=== PATIENT | male | born 1950 | race Caucasian/White ===

== ENCOUNTER 2019-11-01 12:12 | Outpatient (CLI) | payer MEDICARE, BC, SELFPAY ==
[2019-11-01 12:47] LABS: Basophils # 0.1 10^3/uL (0.0-0.1); Basophils % 1.1 %; Eosinophils # 0.1 10^3/uL (0.0-0.8); Eosinophils % 1.2 %; Hematocrit 44.2 % (42.0-52.0); Hemoglobin 15.7 g/dL (11.7-16.6); Lymphocytes % 25.2 %; Mean Corpuscular HGB Conc 35.5 g/dL (30.0-36.0); Mean Corpuscular Hemoglobin 43.3 pg (28.0-34.0); Mean Corpuscular Volume 121.8 fL (80-94); Mean Platelet Volume 9.8 fL (7.4-10.4); Monocytes # 0.6 10^3/uL (0.2-0.9); Monocytes % 7.6 %; Neutrophils # 5.1 10^3/uL (1.8-7.7); Neutrophils % 63.4 %; Nucleated Red Blood Cells % 0.4 %; Platelet Count 348 10^3/cmm (130-400); Red Blood Count 3.63 10^6/uL (4.1-5.3); Red Cell Distribution Width 13.2 % (12.1-15.1)
--- NOTE | 2019-11-04 06:18 | ONC FU_ITS ---
Dr. Del Cid Patient Follow-Up Note Patient: Jay Dash Unit #: [id number]: 1950 Dicatated By: Mikhail Del Cid M.D.Date of Visit:Nov 01, 2019 Onc Med Follow-up/Prog Note Chief Complaint: Polycythemia rubra vera. 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 This patient has been in good general health. Sometime around 2010 his family physician told him that his blood count was high and that he should start donating blood. In 2010 he underwent appendectomy and his postoperative course was complicated by either thrombosis or hemorrhage or both. At that time he was confirmed to have polycythemia rubra vera. His indicates that he did have a positive JAK2 gene mutation study. He was initially managed with phlebotomy. He put off starting hydroxyurea until about a year and a half ago. It controlled his disease pretty well, but he still required phlebotomy about every 2-3 months. He had no further problems with thromboembolism or hemorrhage. I had seen him initially on 01/22/2018 after he had moved to this area from [place]. At that point he was taking 500 mg of hydroxyurea in the morning and 1000 mg in the evening, and he also was on aspirin prophylaxis. His hematocrit was slightly elevated at 47%. His other blood counts were normal. He was phlebotomized and he continued hydroxyurea at the same dosage. He has additional history of benign prostatic hypertrophy, which he has managed adequately with finasteride. He has no other ongoing medical illnesses. He underwent a left rotator cuff repair on 12/28/2018. He is a nonsmoker. He is seen for a scheduled visit. He has been feeling good generally. He has good energy and activity tolerance. Appetite is good. His weight is down 8 pounds since his last visit. He does not have fever or night sweats. He has no shortness of breath, cough, or chest pain. He has no GI or complaints. He still has some pain in his left shoulder following his rotator cuff surgery. He has no other joint or bone pain. He has no focal neurologic symptoms. Medications: Aspirin 1 Tablet (of 81 mg) Oral daily, Finasteride 1 Tablet (of 5 mg) Oral daily, Garlic 2 Capsule (of 200 mg) Tablet Oral daily, Hydrea (500 mg) Capsule Oral Take as Directed, Multivitamin Adults 1 Tablet Oral daily, shark oil 1 Tablet daily Allergies: Acetaminophen, hydrocodone, and Meperidine HCl. Review of Systems: Constitutional - His energy is good. He has normal activity. His appetite is good. His weight is down about 8 pounds since his last visit. No fever or night sweats. ECOG score is 0, ENMT - No sinus congestion/drainage. No mouth sores. No sore throat or difficulty swallowing, Hematologic/Lymphatic - No abnormal bruising or bleeding, Respiratory - No shortness of breath. No cough. No pleuritic pain or hemoptysis, Cardiovascular - No angina pain. No palpitations, Gastrointestinal - No nausea or vomiting. No heartburn or acid reflux. No diarrhea or constipation. No blood in the stool or black stools, Genitourinary (M) - No dysuria or hematuria. No urinary frequency. No urgency or incontinence, Musculoskeletal - He has some pain in his left shoulder, Integumentary - No skin complications, Neurologic - No headache or dizziness. No numbness/paresthesias or other focal neurologic symptoms, Psychiatric - No anxiety or depression. He sometimes has trouble sleeping at night. Vital Signs: Performed on Nov 01, 2019 13:55 Height - 70.50 in Weight - 181.8 lbs (LOW) BSA - 2.01 sq.m BMI - 25.72 Temperature - 97.4 F (LOW) Pulse - 88 /min Respiration - 19 /min BP - 140/88 mm(hg) O2 Sat - 96 % Pain - 0 Physical Examination: Constitutional - He looks good generally, Eyes - Sclerae nonicteric. Conjunctivae clear, ENMT - No lesions noted in the oral cavity, Hematologic/Lymphatic - No cervical, clavicular, or axillary adenopathy, Respiratory - Lungs are clear with good air movement bilaterally, Cardiovascular - Heart rhythm is regular. There is no murmur, gallop, or rub noted, Abdomen - Soft. Liver and spleen are not enlarged. There is no abdominal mass or ascites noted and there is no inguinal adenopathy, Extremities - No edema. Pedal pulses are palpable bilaterally, Neurologic - No focal neurologic deficits noted. Lab/Imaging: Test performed on Nov 01, 2019 12:24 WBC 8.0 10 3/uL RBC 3.63 10 6/uL HGB 15.7 g/dL HCT 44.2 % MCV 121.8 fL MCH 43.3 pg MCHC 35.5 g/dL RDW 13.2 % Platelet Count 348 10 3/cmm MPV 9.8 fL Neutrophils 5.1 10 3/uL Lymphocytes 2.0 10 3/uL Monocytes 0.6 10 3/uL Eosinophils 0.1 10 3/uL Basophils 0.1 10 3/uL Neutrophil % 63.4 % Lymphocyte % 25.2 % Monocyte % 7.6 % Eosinophil % 1.2 % Basophils % 1.1 % Impression: 1. Patient with polycythemia rubra vera, initially diagnosed in 2012. His disease has been managed adequately with hydroxyurea and aspirin prophylaxis. 2. He has benign prostatic hypertrophy, adequately managed with finasteride. 3. He has a significant family history for prostate cancer. He was seen here initially December 2017. His hematocrit was slightly elevated, but his other blood counts were normal. He continued hydroxyurea at the same dosage, which he had been tolerating well. He has since then continued to tolerate the hydroxyurea without adverse effects, and his blood counts remain adequately controlled. Overall, he appears to be doing very well clinically. Plan: He continues hydroxyurea 500 mg in the morning and 1000 mg in the evening and he continues aspirin prophylaxis. His blood count will be rechecked in 3 months. He will be phlebotomized again as needed. I will see him again in 6 months. Signed By: Mikhail Del Cdi M.D. <<Signature on File>>
== END 2019-11-01 12:13 | disposition home or self-care (01) ==
LOC: ONCMED 12:16
PROVIDERS: Family Provider Electrodiagnostic Medicine; PCP Electrodiagnostic Medicine; Visit Provider Internal Medicine Medical Oncology
DX: D45 Polycythemia vera (principal); N40.0 Benign prostatic hyperplasia without lower urinary tract symptoms; Z79.82 Long term (current) use of aspirin; Z79.899 Other long term (current) drug therapy; Z80.42 Family history of malignant neoplasm of prostate
CPT/HCPCS: 36415; 85025; 99214

== ENCOUNTER 2020-01-30 15:13 | Emergency (ER) | payer BC, SELFPAY ==
[2020-01-30 15:18] VITALS: BP 124/80; PULSE 67; RESP 18; TEMP 36.3; O2SAT 96; BMI 26.0
--- NOTE | 2020-01-30 15:31 | XRR_ITS ---
PROCEDURE INFORMATION: Exam: XR Right Ribs with PA Chest, 3 Views Exam date and time: 01/30/2020 3:32 PM Age: 69 years old Clinical indication: Injury or trauma; Fall; Initial encounter; Rib area; Blunt trauma (contusions or hematomas); Additional info: Fall from horse TECHNIQUE: Imaging protocol: XR Right ribs 3 views with PA chest. COMPARISON: No relevant prior studies available. FINDINGS: Lungs: Unremarkable. No consolidation. Pleural space: Unremarkable. No pleural effusion. No pneumothorax. Heart/Mediastinum: Unremarkable. No cardiomegaly. Bones/joints: There is a mildly displaced fracture through the lateral aspect of the right 10th rib. XR/XR ribs RT mn 3V w CXR1V [id number] IMPRESSION: There is a mildly displaced fracture through the lateral aspect of the right 10th rib.
--- NOTE | 2020-01-30 15:31 | XRR_ITS ---
PROCEDURE INFORMATION: Exam: XR Right Shoulder Exam date and time: 01/30/2020 4:16 PM Age: 69 years old Clinical indication: Injury or trauma; Fall; Initial encounter; Blunt trauma (contusions or hematomas; Shoulder; Right; Additional info: Fall from horse TECHNIQUE: Imaging protocol: XR Right shoulder. Views: 2 or more views. COMPARISON: No relevant prior studies available. FINDINGS: Bones/joints: There are [id number] degenerative changes across the acromioclavicular joint. Soft tissues: There are benign-appearing soft tissue calcifications. XR/XR shoulder RT min 2V* [id number] IMPRESSION: No acute findings.
--- NOTE | 2020-01-30 15:31 | XRR_ITS ---
PROCEDURE INFORMATION: Exam: XR Right Humerus Exam date and time: 01/30/2020 4:18 PM Age: 69 years old Clinical indication: Injury or trauma; Fall; Initial encounter; Blunt trauma (contusions or hematomas; Shoulder; Right; Additional info: Fall from horse TECHNIQUE: Imaging protocol: XR Right humerus Views: 2 or more views. COMPARISON: No relevant prior studies available. FINDINGS: Bones/joints: Normal. Soft tissues: Normal. XR/[place] [id number] IMPRESSION: No acute findings.
--- NOTE | 2020-01-30 15:32 | ED_ITS ---
HPI - Fall General: Chief Complaint: Fall Stated Complaint: BUCKED OFF A HORSE Time Seen by Provider: 01/30/20 15:25 History of Present Illness: HPI Narrative: Patient was thrown from a horse while attempting to saddle break it. Patient landed on his right side. Patient complains of pain to his right shoulder, right upper arm, and right ribs. Patient also has an abrasion to the right side of his face his right hand and left ankle. MD complaint: fall Onset (ago): hour(s) Fall from: other Fall witnessed: yes, by family Place fall occurred: home Loss of consciousness: None Prolonged down time: no Symptoms prior to fall: none Context: other Location of injury: face and chest Location of injury - extremities: Right: shoulder and arm Severity: moderate Associated symptoms-after fall: Reports no associated symptoms Review of Systems General: Reports: 10 or more systems reviewed and unremarkable except in HPI and below PFSH ED PFSH: Social History Smoking and tobacco status: never smoked Physical Exam HENMT: COMMON NORMALS: normocephalic HEAD & SCALP: normocephalic and abrasion Neck/C-Spine: COMMON NORMALS: full ROM and no meningeal signs CERVICAL S PINE: Yes cervical ROM normal, Yes normal cervical lordosis, No pain with cervical ROM and No Cervical spine tenderness Chest: CHEST: Yes localized rib tenderness with anteroposterior compression Resp: COMMON NORMALS: normal respiratory effort, No use of accessory muscles and clear to auscultation bilaterally AUSCULTATION: clear to auscultation bilaterally Cardio: COMMON NORMALS: regular rate and regular rhythm RATE: regular rate RHYTHM: regular rhythm GI: COMMON NORMALS: Normal to inspection, nondistended, normoactive bowel sounds present Extremity: RIGHT UPPER EXTREMITY: Yes shoulder joint (Tender to palpation) and Yes upper arm (Tender to palpation) Neuro: MENINGEAL SIGNS: Yes no meningeal signs Skin: COMMON NORMALS: no rashes or lesions noted GENERAL SKIN EXAM: no rashes or lesions noted TRAUMA: abrasion, no lacerations and no punctures noted Course Vital Signs: Vital signs: Vital Signs Temperature 97.3 F L 01/30/20 15:18 Pulse Rate 67 01/30/20 15:18 Respiratory Rate 18 01/30/20 15:18 Blood Pressure 124/80 01/30/20 15:18 Pulse Oximetry 96 01/30/20 15:18 MDM - Fall Imaging Data^: Other Xray: My impression: Moderately displaced fracture of the distal 10th rib. There is also a nondisplaced fracture of the ninth rib. Discharge Plan Discharge Patient Disposition: Home, Self-Care Clinical Impression: Animal-rider injured by fall from or being thrown from horse in noncollision accident, initial encounter Fracture of ribs, two, closed Qualifiers: Encounter type: initial encounter Laterality: right Qualified Code(s): S22.41XA - Multiple fractures of ribs, right side, initial encounter for closed fracture Contusion of right shoulder Qualifiers: Encounter type: initial encounter Qualified Code(s): S40.011A - Contusion of right shoulder, initial encounter Sprain of right shoulder Qualifiers: Encounter type: initial encounter Shoulder sprain type: unspecified sprain Qualified Code(s): S43.401A - Unspecified sprain of right shoulder joint, initial encounter Condition: Stable Prescriptions: New hydrocodone-acetaminophen 5-325 mg tablet 1 tab PO Q4H PRN (Reason: pain) Qty: 20 RF: 0 No Action Multiple Vitamins Tablet 1 tab PO DAILY RF: 0 garlic 300 mg Capsule 300 mg PO DAILY RF: 0 hydroxyurea 500 mg capsule 500 mg PO TID RF: 0 aspirin 81 mg Tablet,Delayed Release (Dr/Ec) 81 mg PO DAILY RF: 0 shark cartilage 500 mg Capsule 500 mg PO DAILY RF: 0 finasteride 5 mg tablet 5 mg PO TID RF: 0 Discharge Orders: Discharge Order (Routine); Ordered 01/30/20 Ordered By: [place] Bui Referrals: Mode Rivas DO [Primary Care Provider] - Patient Instructions: Rib Fracture (ED) Coding Level of Care Code ED Merchandise Associate for Chg Fwd Exam Comprehensive
[2020-01-30] MEDS: tetanus-diphtheria tox (adult) 0.5 mL SDV IM (16:53)
[2020-01-30 17:01] VITALS: BP 123/85; PULSE 70; RESP 14; O2SAT 97
== END 2020-01-30 17:03 | disposition home or self-care (01) ==
PROVIDERS: Emergency Provider Family Medicine; Family Provider Electrodiagnostic Medicine; PCP Electrodiagnostic Medicine
DX: S40.011A Contusion of right shoulder, initial encounter (principal); S43.401A Unspecified sprain of right shoulder joint, initial encounter; S22.41XA Multiple fractures of ribs, right side, initial encounter for closed fracture; V80.010A Animal-rider injured by fall from or being thrown from horse in noncollision accident, initial encounter; Z79.82 Long term (current) use of aspirin; Z23 Encounter for immunization; S00.81XA Abrasion of other part of head, initial encounter
CPT/HCPCS: 12345; 71101; 73030; 73060; 90714; 99281; 99283

== ENCOUNTER 2020-02-02 00:03 | Emergency (ER) | payer BC, SELFPAY ==
[2020-02-02 00:17] VITALS: BP 120/69; PULSE 84; RESP 18; TEMP 36.9; O2SAT 94; BMI 25.7
--- NOTE | 2020-02-02 00:27 | USCV_ITS ---
JeniseJay newell Age: 69 Gender: M : 1950 Exam Date: 02/02/2020 01:12 Ordering Phys: Muriel Mejias DO Technologist: Delmi Amezquita Exam Location: [facility] [place] Indication: LEG SWELLING HISTORY: Leg Swelling PROCEDURES: The venous duplex Doppler examination of both lower extremities was performed in the standard fashion. The following venous structures were evaluated: common femoral vein, profunda vein, proximal portion of the greater saphenous vein, superficial femoral vein, and the popliteal vein. In addition, the posterior tibial and peroneal trunk were evaluated. Serial compression, augmentation maneuvers, and spectral Doppler flow evaluation were performed. FINDINGS: No DVT in any vessel examined The veins were found to be easily compressible with spontaneous blood flow. Non pulsatile flow pattern. CONCLUSIONS No evidence of DVT in the above-mentioned identifiable veins. Dr Philippe Pérez MD [facility] (Electronically Signed) Final Date: 02 February 2020 18:58 S
--- NOTE | 2020-02-02 00:28 | XR_ITS ---
WS: [id number] XR chest 1V portable [id number] REASON FOR EXAM: PAIN FINDINGS: One view AP of the chest shows streak atelectasis bilaterally in the lower lungs not noted on previous exam of January 30, 2020. There is arteriosclerotic changes in the arch of the aorta. No definite fractures the rib cage are seen. The lung isaacs are mildly hypoaerated. XR/XR chest 1V portable [id number] IMPRESSION: Lower lung plate atelectasis.
[2020-02-02 00:35] VITALS: PULSE 82
[2020-02-02 00:47] LABS: Eosinophils # 0.1 10^3/uL (0.0-0.8); Eosinophils % 2.8 %; Hematocrit 38.3 % (42.0-52.0); Hemoglobin 13.3 g/dL (11.7-16.6); Lymphocytes # 1.4 10^3/uL (0.8-4.8); Lymphocytes % 64.6 %; Mean Corpuscular HGB Conc 34.7 g/dL (30.0-36.0); Mean Corpuscular Hemoglobin 37.6 pg (28.0-34.0); Mean Corpuscular Volume 108.2 fL (80-94); Monocytes # 0.2 10^3/uL (0.2-0.9); Neutrophils % 23.2 %; Nucleated Red Blood Cells % 0 %; Platelet Count 141 10^3/cmm (130-400); Red Blood Count 3.54 10^6/uL (4.1-5.3); Red Cell Distribution Width 20.8 % (12.1-15.1); White Blood Count 2.1 10^3/uL (4.0-10.0)
[2020-02-02 00:58] LABS: D Dimer 1.91 ug/mIFEU (0-0.59)
[2020-02-02 01:02] LABS: Alanine Aminotransferase 37 U/L (0-41); Alkaline Phosphatase 88 IU/L (40-130); Anion Gap 16.3 (5-19); Aspartate Amino Transferase 34 U/L (0-40); Blood Urea Nitrogen 11 mg/dL (8-23); Calcium 9.3 mg/dL (8.5-10.5); Carbon Dioxide 27 mmol/L (22-29); Chloride 99 mmol/L (98-107); Globulin 2.6 g/dL (1.3-4.6); Glucose 114 mg/dL (65-115); Osmolality Calculated 283 mOsm/kg (285-295); Potassium 4.3 mmol/L (3.5-5.1); Sodium 138 mmol/L (136-145); Total Bilirubin 1.1 mg/dL (0.15-1.2); Total Protein 6.6 g/dL (6.6-8.7)
[2020-02-02 01:09] LABS: Slide Review Slide Review Perform
[2020-02-02 01:11] LABS: Neutrophils # 0.5 10^3/uL (1.8-7.7)
--- NOTE | 2020-02-02 01:37 | W.ED.EXTPRO ---
Documented by User: Muriel Mejias 02/02/20 05:41 HPI - Extremity Problem General: Chief complaint: Extremity Problem,Nontraumatic Stated complaint: Swollen legs Time Seen by Provider: 02/02/20 00:23 History of Present Illness: HPI Narrative: Jay is a nice 69-year-old male who comes in complaining of leg pain and swelling. He also complains of sharp lytic type chest pain. Patient was thrown off of a horse on January 29 causing him to land on his right ribs subsequently breaking 2 of them. Patient was seen and evaluated here and found to have a normal right humerus x-ray, 2 broken ribs on chest x-ray but no pneumothorax or hemothorax, and contusions but no other severe injuries. Patient states since going home he has been feeling more tired and with it hurting so much to take deep breath he has been much more sedentary than normal. His legs began to swell because of this he became very concerned as he has polycythemia vera and wanted to come in to be evaluated for DVT/PE. He states his chest pain is no worse than normal. He is not short of breath at rest. He denies any abdominal or back pain. Associated symptoms: Reports chest pain; Deny fever(s) or rash Review of Systems Const: Denies: fever(s), chills, body aches, fatigue, malaise or diaphoresis Eyes: Denies: change in vision, blurry vision, blind spots or photophobia ENMT: Denies: throat pain, odynophagia, hoarseness, swelling of lips/tongue, ear or mastoid pain, ear discharge, change in hearing or nasal discharge Card: Reports: chest pain; Denies: palpitations, irregular heart rhythm, edema, lightheadedness, syncope, pre-syncope, dyspnea on exertion or orthopnea Resp: Reports: dyspnea and pain on inspiration; Denies: productive cough, non-productive cough, wheezing, hemoptysis or chest congestion GI: Denies: abdominal pain, nausea, vomiting, hematemesis, coffee ground emesis, heartburn, diarrhea, constipation, GI cramping, hematochezia or melena : Denies: flank pain, dysuria, urinary frequency, urinary urgency or hematuria Musc: Reports: extremity swelling; Denies: neck pain, back pain, extremity pain, joint pain, joint swelling, joint redness, joint warmth or joint stiffness Skin/Breast: Denies: rash, pruritus, erythema, skin tenderness or jaundice Neuro: Denies: headache(s), numbness in extremities, weakness in extremities, sensory changes, lack of coordination, difficulty walking, dizziness, vertigo, confusion or Slurred speech present Colin/Lymph: Denies: easy bruising, easy bleeding, petechiae, purpura or enlarged lymph nodes All/Imm: Denies: urticaria, throat swelling, tongue swelling, facial swelling or acute wheezing PFSH ED PFSH: Medical History BPH (benign prostatic hyperplasia) Fracture of ribs, two, closed Polycythemia vera Surgical History S/P appendectomy S/P left rotator cuff repair Social History Smoking and tobacco status: never smoked Physical Exam Const: COMMON NORMALS: no acute distress, patient oriented x3, no limitations, healthy appearing and well nourished GENERAL APPEARANCE: cooperative, well kempt and well developed HENMT: COMMON NORMALS: normocephalic, atraumatic, hearing grossly normal bilaterally, external ears normal, EAC's normal, Normal external nose present and moist oral mucous membranes HEAD & SCALP: normocephalic and atraumatic NOSE: Normal external nose present and Normal nares present EXTERNAL EAR: Yes external ears normal EXTERNAL AUDITORY CANAL: EAC's normal MOUTH: Normal oral and palatal mucosa present, lip normal and tongue normal Eye: COMMON NORMALS: Equal, round and reactive pupils present, EOMs intact bilaterally, conjunctivae normal and no scleral icterus GENERAL EYE: appearance normal, both eyes and all related structures ALIGNMENT: Yes alignment normal PERIORBITAL: periorbital findings normal EYELID: eyelids normal CONJUNCTIVA: Yes conjunctivae normal SCLERA: sclerae normal PUPIL: Yes Equal, round and reactive pupils present Neck/C-Spine: COMMON NORMALS: full ROM, no lymphadenopathy, supple, no meningeal signs and no JVD GENERAL: Yes normal visual inspection and Yes trachea midline Chest: CHEST: Yes tenderness rib (Right mid to lower) Resp: COMMON NORMALS: normal respiratory effort, No retractions, No use of accessory muscles and clear to auscultation bilaterally EFFORT & INSPECTION: Yes able to speak in complete sentences and Yes symmetric chest movement AUSCULTATION: clear to auscultation bilaterally, no crackles, no rales, no rhonchi and no wheezes Cardio: COMMON NORMALS: no JVD, regular rate, regular rhythm, S1 normal heart sound present, S2 normal heart sound present, No gallops present (Cardio), No clicks present (Cardio), No murmurs present (Cardio) and No rub (Cardio) RATE: regular rate RHYTHM: regular rhythm HEART SOUNDS: S1 normal heart sound present and S2 normal heart sound present GI: COMMON NORMALS: Soft to palpation and No hepatosplenomegaly present PALPATION: Yes Soft to palpation, No Tenderness to palpation present (GI), No Guarding due to palpation present (GI), No Rigid due to palpation, Yes No hepatosplenomegaly present, No Hernia present, No Palpable mass present and No Pulsatile mass present : COMMON NORMALS: Yes no CVA tenderness BLADDER/KIDNEY EXAM: Yes no CVA tenderness Back/Pelvis: COMMON NORMALS: no CVA tenderness, thoracic and lumbar spine normal to inspection, no thoracic nor lumbar tenderness and thoraco-lumbar ROM normal Extremity: COMMON NORMALS: normal to inspection, full ROM, capillary refill normal and no joint enlargement NARRATIVE EXTREMITY EXAM: Mild bilateral lower extremity edema. Strong DP pulses bilaterally. Neuro: COMMON NORMALS: patient oriented x3, CN's II-XII intact bilaterally, moves all extremities, no focal motor deficits and no sensory deficits noted MENINGEAL SIGNS: Yes no meningeal signs SPEECH: speech normal Psych: COMMON NORMALS: mental status grossly normal, Normal thought process present, cooperative, normal affect, speech normal and activity/motor behavior normal APPEARANCE: Yes well kempt SPEECH: Yes normal speech THOUGHT PROCESS: Normal thought process present Skin: COMMON NORMALS: no rashes or lesions noted, turgor normal, no jaundice, no petechiae and no mottling GENERAL SKIN EXAM: no rashes or lesions noted and turgor normal Course ED course: 0408 -radiology has notified me that they do not have enough nuclear tracer to perform a VQ scan until 6 AM. I chose to do a V/Q initially as our CT scanner is down and we do not have another physician to be present in case there is an allergic reaction to IV contrast. At that time we will be able to do a CT of the chest with contrast. It would also be quicker to get this accomplished than it would be to transfer the patient at this time for CT or VQ. Patient's ultrasound of his legs are negative which makes this less likely as most DVTs come from his legs. The patient agrees to wait and have the CT done here. Phone call is currently out to Dr. Del Cid as to how he would like to proceed with the patient's neutropenia. 0540 -EMS here to take the patient for CT. I will go over and be present for the CTA contrast. Formal care of the patient will be turned over to Dr. Cosby. Vital Signs: Vital signs: Vital Signs Temperature 98.4 F 02/02/20 00:17 Pulse Rate 90 02/02/20 07:32 Respiratory Rate 18 02/02/20 07:32 Blood Pressure 127/73 02/02/20 07:32 Pulse Oximetry 96 02/02/20 07:32 MDM - Extremity (Nontraumatic) Lab Data: Labs: Lab Results 02/02/20 02/02/20 02/02/20 Range/Units 00:35 00:35 00:35 WBC 2.1 L (4.0-10.0) 10^3/ uL RBC 3.54 L (4.1-5.3) 10^6/u L Hgb 13.3 (11.7-16.6) g/dL Hct 38.3 L (42.0-52.0) % MCV 108.2 H (80-94) fL MCH 37.6 H (28.0-34.0) pg MCHC 34.7 (30.0-36.0) g/dL RDW 20.8 H (12.1-15.1) % Plt Count 141 (130-400) 10^3/c mm MPV 10.0 (7.4-10.4) fL Neut % (Auto) 23.2 % Lymph % (Auto) 64.6 % [place] % (Auto) 8.0 % Eos % (Auto) 2.8 % Baso % (Auto) 0.0 % Neut # (Auto) 0.5 L* (1.8-7.7) 10^3/u L Lymph # (Auto) 1.4 (0.8-4.8) 10^3/u L [place] # (Auto) 0.2 (0.2-0.9) 10^3/u L Eos # (Auto) 0.1 (0.0-0.8) 10^3/u L Baso # (Auto) 0.0 (0.0-0.1) 10^3/u L Nucleated RBC % (a uto) 0 % Total Counted 100 (0-100) Absolute Neutrophi ls 0.4 L* (1.4-6.5) 10^3/c mm Segmented Neutroph ils 20 % Abs Segm Neuts (Ma n) 0.4 L (1.6-7.1) 10/cmm Band Neutrophils 1.0 % Abs Band Neuts (Ma n) 0.0 (0.0-1.2) 10^3/c mm Lymphocytes (Manua l) 69 % Monocytes (Manual) 4.0 % Absolute Monocytes 0.1 (0.1-0.6) 10^3/c mm Eosinophils (Manua l) 6 % Absolute Eosinophi ls 0.1 (0.0-0.7) 10^3/c mm Nucleated RBCs 2.0 H (0-1) /100WBC Nucleated RBCs # 0.0 /100WBC Platelet Estimate Decreased (Normal) D-Dimer 1.91 H (0-0.59) ug/mIFE U Sodium 138 (136-145) mmol/L Potassium 4.3 (3.5-5.1) mmol/L Chloride 99 (98-107) mmol/L Carbon Dioxide 27 (22-29) mmol/L Anion Gap 16.3 (5-19) BUN 11 (8-23) mg/dL Creatinine 0.9 (0.7-1.2) mg/dL Glucose 114 (65-115) mg/dL Calculated Osmolal ity 283 L (285-295) mOsm/k g Lactic Acid (0.5-2.2) mmol/L Calcium 9.3 (8.5-10.5) mg/dL Total Bilirubin 1.1 (0.15-1.2) mg/dL AST 34 (0-40) U/L ALT 37 (0-41) U/L Alkaline Phosphata se 88 (40-130) IU/L Troponin T Baselin e (0-15) ng/mL NT-Pro-B Natriuret Pep (0-125) pg/mL Total Protein 6.6 (6.6-8.7) g/dL Albumin 4.0 (3.5-5.2) g/dL Globulin 2.6 (1.3-4.6) g/dL Urine Color (Yellow) Urine Appearance (CLEAR) Urine pH (5-7) Ur Specific Gravit y (1.005-1.030) Urine Protein (Negative) Urine Glucose (UA) (Normal) Urine Ketones (Negative) Urine Blood (Negative) Urine Nitrate (Negative) Urine Bilirubin (NEGATIVE) Urine Urobilinogen (Negative) mg/dL Ur Leukocyte Gissel ase (Negative) Urine RBC (0-2) /hpf Urine WBC (0-5) /hpf Ur Squamous Epith Cells (0-5) Urine Bacteria (NONE) Urine Mucus 02/02/20 02/02/20 02/02/20 Range/Units 02:59 04:20 05:15 WBC (4.0-10.0) 10^3/ uL RBC (4.1-5.3) 10^6/u L Hgb (11.7-16.6) g/dL Hct (42.0-52.0) % MCV (80-94) fL MCH (28.0-34.0) pg MCHC (30.0-36.0) g/dL RDW (12.1-15.1) % Plt Count (130-400) 10^3/c mm MPV (7.4-10.4) fL Neut % (Auto) % Lymph % (Auto) % [place] % (Auto) % Eos % (Auto) % Baso % (Auto) % Neut # (Auto) (1.8-7.7) 10^3/u L Lymph # (Auto) (0.8-4.8) 10^3/u L [place] # (Auto) (0.2-0.9) 10^3/u L Eos # (Auto) (0.0-0.8) 10^3/u L Baso # (Auto) (0.0-0.1) 10^3/u L Nucleated RBC % (a uto) % Total Counted (0-100) Absolute Neutrophi ls (1.4-6.5) 10^3/c mm Segmented Neutroph ils % Abs Segm Neuts (Ma n) (1.6-7.1) 10/cmm Band Neutrophils % Abs Band Neuts (Ma n) (0.0-1.2) 10^3/c mm Lymphocytes (Manua l) % Monocytes (Manual) % Absolute Monocytes (0.1-0.6) 10^3/c mm Eosinophils (Man[place] l) % Absolute Eosinophi ls (0.0-0.7) 10^3/c mm Nucleated RBCs (0-1) /100WBC Nucleated RBCs # /100WBC Platelet Estimate (Normal) D-Dimer (0-0.59) ug/mIFE U Sodium (136-145) mmol/L Potassium (3.5-5.1) mmol/L Chloride (98-107) mmol/L Carbon Dioxide (22-29) mmol/L Anion Gap (5-19) BUN (8-23) mg/dL Creatinine (0.7-1.2) mg/dL Glucose (65-115) mg/dL Calculated Osmolal ity (285-295) mOsm/k g Lactic Acid 1.3 (0.5-2.2) mmol/L Calcium (8.5-10.5) mg/dL Total Bilirubin (0.15-1.2) mg/dL AST (0-40) U/L ALT (0-41) U/L Alkaline Phosphata se (40-130) IU/L Troponin T Baselin e 7 (0-15) ng/mL NT-Pro-B Natriuret Pep 16 (0-125) pg/mL Total Protein (6.6-8.7) g/dL Albumin (3.5-5.2) g/dL Globulin (1.3-4.6) g/dL Urine Color (Yellow) Urine Appearance (CLEAR) Urine pH (5-7) Ur Specific Gravit y (1.005-1.030) Urine Protein (Negative) Urine Glucose (UA) (Normal) Urine Ketones (Negative) Urine Blood (Negative) Urine Nitrate (Negative) Urine Bilirubin (NEGATIVE) Urine Urobilinogen (Negative) mg/dL Ur Leukocyte Gissel ase (Negative) Urine RBC (0-2) /hpf Urine WBC (0-5) /hpf Ur Squamous Epith Cells (0-5) Urine Bacteria (NONE) Urine Mucus 02/02/20 Range/Units 05:50 WBC (4.0-10.0) 10^3/ uL RBC (4.1-5.3) 10^6/u L Hgb (11.7-16.6) g/dL Hct (42.0-52.0) % MCV (80-94) fL MCH (28.0-34.0) pg MCHC (30.0-36.0) g/dL RDW (12.1-15.1) % Plt Count (130-400) 10^3/c mm MPV (7.4-10.4) fL Neut % (Auto) % Lymph % (Auto) % [place] % (Auto) % Eos % (Auto) % Baso % (Auto) % Neut # (Auto) (1.8-7.7) 10^3/u L Lymph # (Auto) (0.8-4.8) 10^3/u L [place] # (Auto) (0.2-0.9) 10^3/u L Eos # (Auto) (0.0-0.8) 10^3/u L Baso # (Auto) (0.0-0.1) 10^3/u L Nucleated RBC % (a uto) % Total Counted (0-100) Absolute Neutrophi ls (1.4-6.5) 10^3/c mm Segmented Neutroph ils % Abs Segm Neuts (Ma n) (1.6-7.1) 10/cmm Band Neutrophils % Abs Band Neuts (Ma n) (0.0-1.2) 10^3/c mm Lymphocytes (Manua l) % Monocytes (Manual) % Absolute Monocytes (0.1-0.6) 10^3/c mm Eosinophils (Man[place] l) % Absolute Eosinophi ls (0.0-0.7) 10^3/c mm Nucleated RBCs (0-1) /100WBC Nucleated RBCs # /100WBC Platelet Estimate (Normal) D-Dimer (0-0.59) ug/mIFE U Sodium (136-145) mmol/L Potassium (3.5-5.1) mmol/L Chloride (98-107) mmol/L Carbon Dioxide (22-29) mmol/L Anion Gap (5-19) BUN (8-23) mg/dL Creatinine (0.7-1.2) mg/dL Glucose (65-115) mg/dL Calculated Osmolal ity (285-295) mOsm/k g Lactic Acid (0.5-2.2) mmol/L Calcium (8.5-10.5) mg/dL Total Bilirubin (0.15-1.2) mg/dL AST (0-40) U/L ALT (0-41) U/L Alkaline Phosphata se (40-130) IU/L Troponin T Baselin e (0-15) ng/mL NT-Pro-B Natriuret Pep (0-125) pg/mL Total Protein (6.6-8.7) g/dL Albumin (3.5-5.2) g/dL Globulin (1.3-4.6) g/dL Urine Color Yellow (Yellow) Urine Appearance Clear (CLEAR) Urine pH 6.5 (5-7) Ur Specific Gravit y 1.010 (1.005-1.030) Urine Protein Neg (Negative) Urine Glucose (UA) Norm (Normal) Urine Ketones 1+ H (Negative) Urine Blood Neg (Negative) Urine Nitrate Negative (Negative) Urine Bilirubin Neg (NEGATIVE) Urine Urobilinogen 1 H (Negative) mg/dL Ur Leukocyte Gissel ase Negative (Negative) Urine RBC Rare (0-2) /hpf Urine WBC 0-4 H (0-5) /hpf Ur Squamous Epith Cells 0-4 H (0-5) Urine Bacteria Trace (NONE) Urine Mucus 1+ Imaging Data^: CXR: My impression: Atelectasis versus early infiltrate right lower lobe Ultrasound Venous Doppler Bilateral Lower Extremities: My impression: Tech interpretation -no DVT. EKG Data^: EKG 1: Attestation: I personally reviewed and interpreted this EKG as follows: EKG interpretation date: 02/02/20 EKG interpretation time: 03:20 Interpretation: Normal sinus rhythm at 88 beats a minute, no acute ST or T wave changes. Discharge Plan Discharge Patient Disposition: Home, Self-Care Clinical Impression: Multiple rib fractures, Polycythemia vera, Leukopenia Condition: Stable Prescriptions: New Levaquin 750 mg tablet 750 mg PO DAILY 7 Days RF: 0 hydrocodone-acetaminophen 5-325 mg tablet 1 tab PO Q6H PRN (Reason: pain) Qty: 20 RF: 0 Discontinued hydroxyurea 500 mg capsule 500 mg PO TID RF: 0 No Action Multiple Vitamins Tablet 1 tab PO DAILY RF: 0 garlic 300 mg Capsule 300 mg PO DAILY RF: 0 aspirin 81 mg Tablet,Delayed Release (Dr/Ec) 81 mg PO DAILY RF: 0 shark cartilage 500 mg Capsule 500 mg PO DAILY RF: 0 finasteride 5 mg tablet 5 mg PO TID RF: 0 hydrocodone-acetaminophen 5-325 mg tablet 1 tab PO Q4H PRN (Reason: pain) Qty: 20 RF: 0 Discharge Orders: Discharge Order (Routine); Ordered 02/02/20 Ordered By: Kiel Cosby Referrals: Mikhail Del Cid MD [Hospitalist] - 02/07/20 Discharge Diet: Usual diet Discharge Activity: Limit activity as instructed Activity Restrictions/Additional Instructions: If you have any worsening or changes symptoms return to the emergency room. The CT scan of your chest today was negative for pulmonary emboli did show the previous rib fractures from the fall from the horse you had last month. Discharge Date/Time: 02/02/20 07:30 Sign Out Sign Out Data: Patient Sign Out occurred on 02/02/20 at 06:16. Patient's care was discussed, and care was transferred from to Kiel Cosby DO. Coding Level of Care Code ED Press Clipper for Chg Fwd Exam Comprehensive Documented by User: Kiel Cosby DO 02/02/20 11:20 HPI - Extremity Problem General: Chief complaint: Extremity Problem,Nontraumatic Stated complaint: Swollen legs Time Seen by Provider: 02/02/20 00:23 [facility] ED PFSH: Medical History BPH (benign prostatic hyperplasia) Fracture of ribs, two, closed Polycythemia vera Surgical History S/P appendectomy S/P left rotator cuff repair Social History Smoking and tobacco status: never smoked Course Vital Signs: Vital signs: Vital Signs Temperature 98.4 F 02/02/20 00:17 Pulse Rate 90 02/02/20 07:32 Respiratory Rate 18 02/02/20 07:32 Blood Pressure 127/73 02/02/20 07:32 Pulse Oximetry 96 02/02/20 07:32 MDM - Extremity (Nontraumatic) MDM Narrative: Medical decision making narrative: Care assumed from Dr. Falk at change of shift. Patient is neutropenic although not febrile. We have gotten a culture normal ready he has a history of PCV but has been stable any sign been on hydroxyurea. I called and discussed with Dr. Del Cid he concurs with stopping hydroxyurea pending any other findings on the CTA presenting the patient home on Levaquin and like him to follow-up in 5 days at the office for repeat blood counts. If he would have any worsening or deterioration of his condition before then he should return the emergency room immediately. The CTA is still pending at this time patient is stable in the emergency room at this time with no specific complaints. CTA shows the previous fractures from the fall from the horse no pneumothorax. There is no pulmonary emboli. Discussed at length with the patient we will go and start him on Levaquin stop the hydroxyurea. Discussed with him that I had talked to Dr. Del Cid and he would like to see him early next week for repeat blood counts. If he has any worsening or change symptoms she should return to the emergency room immediately or call Dr. Del Cid. Lab Data: Labs: Lab Results 02/02/20 02/02/20 02/02/20 Range/Units 00:35 00:35 00:35 WBC 2.1 L (4.0-10.0) 10^3/ uL RBC 3.54 L (4.1-5.3) 10^6/u L Hgb 13.3 (11.7-16.6) g/dL Hct 38.3 L (42.0-52.0) % MCV 108.2 H (80-94) fL MCH 37.6 H (28.0-34.0) pg MCHC 34.7 (30.0-36.0) g/dL RDW 20.8 H (12.1-15.1) % Plt Count 141 (130-400) 10^3/c mm MPV 10.0 (7.4-10.4) fL Neut % (Auto) 23.2 % Lymph % (Auto) 64.6 % [place] % (Auto) 8.0 % Eos % (Auto) 2.8 % Baso % (Auto) 0.0 % Neut # (Auto) 0.5 L* (1.8-7.7) 10^3/u L Lymph # (Auto) 1.4 (0.8-4.8) 10^3/u L [place] # (Auto) 0.2 (0.2-0.9) 10^3/u L Eos # (Auto) 0.1 (0.0-0.8) 10^3/u L Baso # (Auto) 0.0 (0.0-0.1) 10^3/u L Nucleated RBC % (a uto) 0 % Total Counted 100 (0-100) Absolute Neutrophi ls 0.4 L* (1.4-6.5) 10^3/c mm Segmented Neutroph ils 20 % Abs Segm Neuts (Ma n) 0.4 L (1.6-7.1) 10/cmm Band Neutrophils 1.0 % Abs Band Neuts (Ma n) 0.0 (0.0-1.2) 10^3/c mm Lymphocytes (Manua l) 69 % Monocytes (Manual) 4.0 % Absolute Monocytes 0.1 (0.1-0.6) 10^3/c mm Eosinophils (Manua l) 6 % Absolute Eosinophi ls 0.1 (0.0-0.7) 10^3/c mm Nucleated RBCs 2.0 H (0-1) /100WBC Nucleated RBCs # 0.0 /100WBC Platelet Estimate Decreased (Normal) D-Dimer 1.91 H (0-0.59) ug/mIFE U Sodium 138 (136-145) mmol/L Potassium 4.3 (3.5-5.1) mmol/L Chloride 99 (98-107) mmol/L Carbon Dioxide 27 (22-29) mmol/L Anion Gap 16.3 (5-19) BUN 11 (8-23) mg/dL Creatinine 0.9 (0.7-1.2) mg/dL Glucose 114 (65-115) mg/dL Calculated Osmolal ity 283 L (285-295) mOsm/k g Lactic Acid (0.5-2.2) mmol/L Calcium 9.3 (8.5-10.5) mg/dL Total Bilirubin 1.1 (0.15-1.2) mg/dL AST 34 (0-40) U/L ALT 37 (0-41) U/L Alkaline Phosphata se 88 (40-130) IU/L Troponin T Baselin e (0-15) ng/mL NT-Pro-B Natriuret Pep (0-125) pg/mL Total Protein 6.6 (6.6-8.7) g/dL Albumin 4.0 (3.5-5.2) g/dL Globulin 2.6 (1.3-4.6) g/dL Urine Color (Yellow) Urine Appearance (CLEAR) Urine pH (5-7) Ur Specific Gravit y (1.005-1.030) Urine Protein (Negative) Urine Glucose (UA) (Normal) Urine Ketones (Negative) Urine Blood (Negative) Urine Nitrate (Negative) Urine Bilirubin (NEGATIVE) Urine Urobilinogen (Negative) mg/dL Ur Leukocyte Gissel ase (Negative) Urine RBC (0-2) /hpf Urine WBC (0-5) /hpf Ur Squamous Epith Cells (0-5) Urine Bacteria (NONE) Urine Mucus 02/02/20 02/02/20 02/02/20 Range/Units 02:59 04:20 05:15 WBC (4.0-10.0) 10^3/ uL RBC (4.1-5.3) 10^6/u L Hgb (11.7-16.6) g/dL Hct (42.0-52.0) % MCV (80-94) fL MCH (28.0-34.0) pg MCHC (30.0-36.0) g/dL RDW (12.1-15.1) % Plt Count (130-400) 10^3/c mm MPV (7.4-10.4) fL Neut % (Auto) % Lymph % (Auto) % [place] % (Auto) % Eos % (Auto) % Baso % (Auto) % Neut # (Auto) (1.8-7.7) 10^3/u L Lymph # (Auto) (0.8-4.8) 10^3/u L [place] # (Auto) (0.2-0.9) 10^3/u L Eos # (Auto) (0.0-0.8) 10^3/u L Baso # (Auto) (0.0-0.1) 10^3/u L Nucleated RBC % (a uto) % Total Counted (0-100) Absolute Neutrophi ls (1.4-6.5) 10^3/c mm Segmented Neutroph ils % Abs Segm Neuts (Ma n) (1.6-7.1) 10/cmm Band Neutrophils % Abs Band Neuts (Ma n) (0.0-1.2) 10^3/c mm Lymphocytes (Manua l) % Monocytes (Manual) % Absolute Monocytes (0.1-0.6) 10^3/c mm Eosinophils (Man[place] l) % Absolute Eosinophi ls (0.0-0.7) 10^3/c mm Nucleated RBCs (0-1) /100WBC Nucleated RBCs # /100WBC Platelet Estimate (Normal) D-Dimer (0-0.59) ug/mIFE U Sodium (136-145) mmol/L Potassium (3.5-5.1) mmol/L Chloride (98-107) mmol/L Carbon Dioxide (22-29) mmol/L Anion Gap (5-19) BUN (8-23) mg/dL Creatinine (0.7-1.2) mg/dL Glucose (65-115) mg/dL Calculated Osmolal ity (285-295) mOsm/k g Lactic Acid 1.3 (0.5-2.2) mmol/L Calcium (8.5-10.5) mg/dL Total Bilirubin (0.15-1.2) mg/dL AST (0-40) U/L ALT (0-41) U/L Alkaline Phosphata se (40-130) IU/L Troponin T Baselin e 7 (0-15) ng/mL NT-Pro-B Natriuret Pep 16 (0-125) pg/mL Total Protein (6.6-8.7) g/dL Albumin (3.5-5.2) g/dL Globulin (1.3-4.6) g/dL Urine Color (Yellow) Urine Appearance (CLEAR) Urine pH (5-7) Ur Specific Gravit y (1.005-1.030) Urine Protein (Negative) Urine Glucose (UA) (Normal) Urine Ketones (Negative) Urine Blood (Negative) Urine Nitrate (Negative) Urine Bilirubin (NEGATIVE) Urine Urobilinogen (Negative) mg/dL Ur Leukocyte Gissel ase (Negative) Urine RBC (0-2) /hpf Urine WBC (0-5) /hpf Ur Squamous Epith Cells (0-5) Urine Bacteria (NONE) Urine Mucus 02/02/20 Range/Units 05:50 WBC (4.0-10.0) 10^3/ uL RBC (4.1-5.3) 10^6/u L Hgb (11.7-16.6) g/dL Hct (42.0-52.0) % MCV (80-94) fL MCH (28.0-34.0) pg MCHC (30.0-36.0) g/dL RDW (12.1-15.1) % Plt Count (130-400) 10^3/c mm MPV (7.4-10.4) fL Neut % (Auto) % Lymph % (Auto) % [place] % (Auto) % Eos % (Auto) % Baso % (Auto) % Neut # (Auto) (1.8-7.7) 10^3/u L Lymph # (Auto) (0.8-4.8) 10^3/u L [place] # (Auto) (0.2-0.9) 10^3/u L Eos # (Auto) (0.0-0.8) 10^3/u L Baso # (Auto) (0.0-0.1) 10^3/u L Nucleated RBC % (a uto) % Total Counted (0-100) Absolute Neutrophi ls (1.4-6.5) 10^3/c mm Segmented Neutroph ils % Abs Segm Neuts (Ma n) (1.6-7.1) 10/cmm Band Neutrophils % Abs Band Neuts (Ma n) (0.0-1.2) 10^3/c mm Lymphocytes ([place]) % Monocytes (Manual) % Absolute Monocytes (0.1-0.6) 10^3/c mm Eosinophils ([place]) % Absolute Eosinophi ls (0.0-0.7) 10^3/c mm Nucleated RBCs (0-1) /100WBC Nucleated RBCs # /100WBC Platelet Estimate (Normal) D-Dimer (0-0.59) ug/mIFE U Sodium (136-145) mmol/L Potassium (3.5-5.1) mmol/L Chloride (98-107) mmol/L Carbon Dioxide (22-29) mmol/L Anion Gap (5-19) BUN (8-23) mg/dL Creatinine (0.7-1.2) mg/dL Glucose (65-115) mg/dL Calculated Osmolal ity (285-295) mOsm/k g Lactic Acid (0.5-2.2) mmol/L Calcium (8.5-10.5) mg/dL Total Bilirubin (0.15-1.2) mg/dL AST (0-40) U/L ALT (0-41) U/L Alkaline Phosphata se (40-130) IU/L Troponin T Baselin e (0-15) ng/mL NT-Pro-B Natriuret Pep (0-125) pg/mL Total Protein (6.6-8.7) g/dL Albumin (3.5-5.2) g/dL Globulin (1.3-4.6) g/dL Urine Color Yellow (Yellow) Urine Appearance Clear (CLEAR) Urine pH 6.5 (5-7) Ur Specific Gravit y 1.010 (1.005-1.030) Urine Protein Neg (Negative) Urine Glucose (UA) Norm (Normal) Urine Ketones 1+ H (Negative) Urine Blood Neg (Negative) Urine Nitrate Negative (Negative) Urine Bilirubin Neg (NEGATIVE) Urine Urobilinogen 1 H (Negative) mg/dL Ur Leukocyte Gissel ase Negative (Negative) Urine RBC Rare (0-2) /hpf Urine WBC 0-4 H (0-5) /hpf Ur Squamous Epith Cells 0-4 H (0-5) Urine Bacteria Trace (NONE) Urine Mucus 1+ Discharge Plan Discharge Patient Disposition: Home, Self-Care Clinical Impression: Multiple rib fractures, Polycythemia vera, Leukopenia Condition: Stable Prescriptions: New Levaquin 750 mg tablet 750 mg PO DAILY 7 Days RF: 0 hydrocodone-acetaminophen 5-325 mg tablet 1 tab PO Q6H PRN (Reason: pain) Qty: 20 RF: 0 Discontinued hydroxyurea 500 mg capsule 500 mg PO TID RF: 0 No Action Multiple Vitamins Tablet 1 tab PO DAILY RF: 0 garlic 300 mg Capsule 300 mg PO DAILY RF: 0 aspirin 81 mg Tablet,Delayed Release (Dr/Ec) 81 mg PO DAILY RF: 0 shark cartilage 500 mg Capsule 500 mg PO DAILY RF: 0 finasteride 5 mg tablet 5 mg PO TID RF: 0 hydrocodone-acetaminophen 5-325 mg tablet 1 tab PO Q4H PRN (Reason: pain) Qty: 20 RF: 0 Discharge Orders: Discharge Order (Routine); Ordered 02/02/20 Ordered By: Kiel Cosby Referrals: Mikhail Del Cid MD [Hospitalist] - 02/07/20 Discharge Diet: Usual diet Discharge Activity: Limit activity as instructed Activity Restrictions/Additional Instructions: If you have any worsening or changes symptoms return to the emergency room. The CT scan of your chest today was negative for pulmonary emboli did show the previous rib fractures from the fall from the horse you had last month. Discharge Date/Time: 02/02/20 07:30 Sign Out Sign Out Data: Patient Sign Out occurred on 02/02/20 at 06:16. Patient's care was discussed, and care was transferred from to Kiel Cosby DO. Coding Level of Care Code ED Press Clipper for Ranjang Fwd Exam Comprehensive
[2020-02-02] MEDS: sodium chloride 0.9% 1,000 ML 100 ML IV (02:10)
[2020-02-02 02:33] LABS: Absolute Eosinophils 0.1 10^3/cmm (0.0-0.7); Absolute Segmented Neutrophil 0.4 10/cmm (1.6-7.1); Eosinophils 6 %; Lymphocytes 69 %; Monocytes Absolute 0.1 10^3/cmm (0.1-0.6); Segmented Neutrophils 20 %; Total Cells Counted 100 (0-100)
[2020-02-02 02:34] LABS: Platelet Estimate Decreased (Normal)
[2020-02-02 02:35] LABS: Absolute Neutrophil 0.4 10^3/cmm (1.4-6.5)
--- NOTE | 2020-02-02 02:36 | PC.NURSE ---
critical lab: absolute neutrophils: 0.4. notified
--- NOTE | 2020-02-02 02:52 | ECG_ITS ---
Measurements Intervals [place] Rate: 88 P: 52 WY: 155 QRS: 30 QRSD: 89 T: 50 QT: 340 QTc: 412 SINUS RHYTHM No previous ECG available for comparison Electronically Signed On 02-02-2020 20:56:26 CDT by Philippe Pérez M.D. [id number]
--- NOTE | 2020-02-02 03:14 | CTR_ITS ---
PROCEDURE INFORMATION: Exam: CT Angiography Chest With Contrast Exam date and time: 02/02/2020 6:02 AM Age: 69 years old Clinical indication: Right-sided chest pain; Patient HX: Rib FX, 9-10 RT side, elevated d-dimer TECHNIQUE: Imaging protocol: Computed tomographic angiography of the chest with intravenous contrast. 3D rendering: MIP and/or 3D reconstructed images were created by the technologist. Radiation optimization: All CT scans at this facility use at least one of these dose optimization techniques: automated exposure control; mA and/or kV adjustment per patient size (includes targeted exams where dose is matched to clinical indication); or iterative reconstruction. Contrast material: OMNI 350; Contrast volume: 95 ml; Contrast route: 20G; COMPARISON: CR XR chest 1V portable [id number] 02/02/2020 12:41 AM RADIATION DOSE METRICS: Total DLP: 1175.88 mGy-cm FINDINGS: Pulmonary arteries: No dissection. No visualized embolism as characterized to the most proximal segmental level. Consider alternative form of imaging if indicated. Aorta: Calcification of the aorta. Lungs: Mild atelectasis within the lung bases right greater than left. Subtle airspace disease. Follow-up suggested. No pneumothorax. Pleural space: See Lungs finding. Heart: No pericardial effusion Mediastinum: Soft tissues of the mediastinum appear unremarkable. Lymph nodes: Unremarkable. No enlarged lymph nodes. Liver: Severe fatty infiltration of the liver. Gallbladder and bile ducts: Question mild prominence of the hepatic duct versus common bile duct. Bones/joints: Mildly displaced fracture of the 5th, 6th, 7th ribs anteriorly and laterally. Mildly displaced fracture of the 8th rib posteriorly as well as a displaced fracture of the 8th rib laterally. The more inferior e ribs are not within the field of view. Soft tissues: Unremarkable. Other findings: thoracic inlet is unremarkable. CT/CT angio chest PE protcl [id number] IMPRESSION: 1. No dissection. No visualized embolism as characterized to the most proximal segmental level. Consider alternative form of imaging if indicated. 2. Severe fatty infiltration of the liver. 3. Mildly displaced fracture of the 5th, 6th, 7th ribs anteriorly and laterally. Mildly displaced fracture of the 8th rib posteriorly as well as a displaced fracture of the 8th rib laterally. The more inferior e ribs are not within the field of view. 4. Mild atelectasis within the lung bases right greater than left. Subtle airspace disease. Follow-up suggested. No pneumothorax. Radiation Dose CTDIVOL = (mGy): DLP = 1175.88 (mGy-cm)
[2020-02-02 03:21] LABS: Troponin(5th) Baseline 7 ng/mL (0-15)
--- NOTE | 2020-02-02 04:52 | ECG_ITS ---
Measurements Intervals [place] Rate: 85 P: 42 MA: 161 QRS: 25 QRSD: 94 T: 53 QT: 361 QTc: 431 SINUS RHYTHM No previous ECG available for comparison Electronically Signed On 02-02-2020 21:01:40 CDT by Philippe Pérez M.D. [id number]
[2020-02-02 04:55] LABS: NT Pro B Type Natriuretic Pept 16 pg/mL (0-125)
[2020-02-02 06:07] LABS: Lactic Sepsis W/Reflex 1.3 mmol/L (0.5-2.2)
[2020-02-02] MEDS: iohexol 350 mg/mL 100 mL Btl IV (06:12)
[2020-02-02 06:49] LABS: Protein Urine Neg (Negative); Urine Appearance Clear (CLEAR); Urine Color Yellow (Yellow); pH Urine 6.5 (5-7)
[2020-02-02 06:50] LABS: Bilirubin Urine Neg (NEGATIVE); Blood Urine Neg (Negative); Glucose Urine UA Norm (Normal); Ketones Urine 1+ (Negative); Leukocyte Esterase Urine Negative (Negative); Nitrate Urine Negative (Negative); Urobilinogen Urine 1 mg/dL (Negative)
[2020-02-02 06:51] LABS: Add Urine Culture? No; Bacteria Urine TRACE; Mucus Urine 1+; RBC Urine RARE /hpf (0-2); Squamous Epithelial Cell Urine 0-4 (0-5); WBC Urine 0-4 /hpf (0-5)
--- NOTE | 2020-02-02 06:52 | PC.NURSE ---
second ECG performed and given to Dr Cosby
[2020-02-02 07:32] VITALS: BP 127/73; PULSE 90; RESP 18; O2SAT 96
== END 2020-02-02 07:30 | disposition home or self-care (01) ==
PROVIDERS: Emergency Medicine; Emergency Provider Family Medicine; PCP Electrodiagnostic Medicine
DX: D72.819 Decreased white blood cell count, unspecified (principal); D45 Polycythemia vera; Z79.82 Long term (current) use of aspirin; S22.41XA Multiple fractures of ribs, right side, initial encounter for closed fracture; V80.010A Animal-rider injured by fall from or being thrown from horse in noncollision accident, initial encounter; R07.9 Chest pain, unspecified
CPT/HCPCS: 12345; 36415; 71045; 71275; 80053; 81001; 83605; 83880; 84484; 85007; 85025; 85378; 87040; 93005; 93970; 96361; 96365; 99283; 99284; J0743; J7030; J7050; Q9967

== ENCOUNTER 2020-02-07 14:15 | Outpatient (CLI) | payer BC, SELFPAY ==
[2020-02-07 14:55] LABS: Basophils # 0.1 10^3/uL (0.0-0.1); Basophils % 1.2 %; Eosinophils % 0.6 %; Hematocrit 34.5 % (42.0-52.0); Hemoglobin 11.9 g/dL (11.7-16.6); Lymphocytes # 1.4 10^3/uL (0.8-4.8); Lymphocytes % 26.2 %; Mean Corpuscular HGB Conc 34.5 g/dL (30.0-36.0); Mean Corpuscular Hemoglobin 36.7 pg (28.0-34.0); Mean Corpuscular Volume 106.5 fL (80-94); Mean Platelet Volume 10.5 fL (7.4-10.4); Monocytes # 1.9 10^3/uL (0.2-0.9); Monocytes % 37.2 %; Neutrophils # 1.2 10^3/uL (1.8-7.7); Neutrophils % 23.8 %; Nucleated Red Blood Cells % 0.6 %; Platelet Count 156 10^3/cmm (130-400); Red Blood Count 3.24 10^6/uL (4.1-5.3); Red Cell Distribution Width 21.3 % (12.1-15.1); White Blood Count 5.2 10^3/uL (4.0-10.0)
[2020-02-07 17:40] LABS: Slide Review Slide Review Perform
--- NOTE | 2020-02-11 15:56 | ONC FU_ITS ---
Dr. Del Cid Patient Follow-Up Note Patient: Jay Dash Unit #: [id number]: [id number] Dicatated By: Mikhail Del Cid M.D.Date of Visit:Feb 07, 2020 Onc Med Follow-up/Prog Note Chief Complaint: Polycythemia rubra vera. 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 This patient has been in good general health. Sometime around 2010 his family physician told him that his blood count was high and that he should start donating blood. In 2010 he underwent appendectomy and his postoperative course was complicated by either thrombosis or hemorrhage or both. At that time he was confirmed to have polycythemia rubra vera. His indicates that he did have a positive JAK2 gene mutation study. He was initially managed with phlebotomy. He put off starting hydroxyurea until about a year and a half ago. It controlled his disease pretty well, but he still required phlebotomy about every 2-3 months. He had no further problems with thromboembolism or hemorrhage. I had seen him initially on 01/22/2018 after he had moved to this area from [place]. At that point he was taking 500 mg of hydroxyurea in the morning and 1000 mg in the evening, and he also was on aspirin prophylaxis. His hematocrit was slightly elevated at 47%. His other blood counts were normal. He was phlebotomized and he continued hydroxyurea at the same dosage. He has additional history of benign prostatic hypertrophy, which he has managed adequately with finasteride. He has no other ongoing medical illnesses. He underwent a left rotator cuff repair on 12/28/2018. He is a nonsmoker. INTERIM HISTORY: As of his follow-up visit on 11/01/2019, his blood counts are adequately controlled on any hydroxyurea, and he appeared stable clinically. On 02/02/2020 he presented to the emergency room 3 days after he had been thrown from a horse. He had suffered some rib fractures on the right. The main reason he went in was that he had developed swelling in the lower extremities. His CBC at that time showed a decline in his hemoglobin to 13 g with hematocrit 38%. The white blood cell count had dropped to 2100 with absolute neutrophil count 500. The platelet count was low normal at 141,000. He was not febrile. He was given empiric antibiotic coverage with Levaquin, and the hydroxyurea was put on hold. He is seen for a follow-up visit. He still has very limited activity following his recent injury. ECOG score is 2. He says his appetite is getting better. He has not had fever. He did have some sweating last night. He has had no mouth sores. He has having some pain with breathing. He has not had cough or shortness of breath. He was having nausea, but that is better now. Bladder function remains adequate with stool softeners. He has no complaints. He has mild headache. He has no focal neurologic symptoms. Medications: Aspirin 1 Tablet (of 81 mg) Oral daily, Finasteride 1 Tablet (of 5 mg) Oral daily, Garlic 2 Capsule (of 200 mg) Tablet Oral daily, Hydrea (500 mg) Capsule Oral Take as Directed, HYDROcodone-Acetaminophen 1 Tablet (of 5-325 mg) Oral q PRN, Levaquin 1 Tablet (of 500 mg) Oral daily for 2 days, Multivitamin Adults 1 Tablet Oral daily, shark oil 1 Tablet daily Allergies: Acetaminophen, hydrocodone, and Meperidine HCl. Review of Systems: Constitutional - His energy level his low. He currently has activity restriction from an injury, and he is mainly sedentary. His appetite is good and weight is stable. No fevers. He had recent episode of chills with night sweats. No hot flashes. ECOG score is 2, ENMT - No sinus congestion/drainage. No mouth sores. No sore throat or difficulty swallowing, Hematologic/Lymphatic - He has bruising to his right flank related to injury, Respiratory - No shortness of breath. No cough. No pleuritic pain or hemoptysis, Cardiovascular - No angina pain. No palpitations, Gastrointestinal - He was having nausea. No vomiting. No heartburn or acid reflux. No diarrhea or constipation. No blood in the stool or black stools, Genitourinary (M) - No dysuria or hematuria. No urinary frequency. No urgency or incontinence, Musculoskeletal - He has right sided rib pain related to rib fracture from recent injury, Integumentary - No skin complications, Neurologic - He has had a few recent mild headaches. No dizziness. No numbness or tingling. No other focal neurologic symptoms, Psychiatric - No anxiety or depression. No insomnia. Vital Signs: Performed on Feb 07, 2020 15:48 Height - 70.50 in Weight - 181.4 lbs (LOW) BSA - 2.01 sq.m BMI - 25.66 Temperature - 97.5 F (LOW) Pulse - 101 /min (HIGH) Respiration - 24 /min BP - 117/66 mm(hg) O2 Sat - 97 % Pain - 1 Physical Examination: Constitutional - He has limited mobility. He does not appear acutely ill, Eyes - Sclerae nonicteric. Conjunctivae clear, ENMT - No lesions noted in the oral cavity, Hematologic/Lymphatic - No cervical, clavicular, or axillary adenopathy, Respiratory - Lungs are clear with slightly diminished air movement bilaterally, Cardiovascular - Heart rhythm is regular. There is no murmur, gallop, or rub noted, Abdomen - Soft. Liver and spleen are not enlarged. There is no abdominal mass or ascites noted and there is no inguinal adenopathy, Extremities - Slight edema. Pedal pulses are palpable bilaterally, Integumentary - There is a healing abrasion on the medial aspect of the left ankle. There is resolving ecchymosis, which appears on the lower abdomen/flank on the right side, Neurologic - No focal neurologic deficits noted. Lab/Imaging: Test performed on Nov 01, 2019 12:24 WBC 8.0 10 3/uL RBC 3.63 10 6/uL HGB 15.7 g/dL HCT 44.2 % MCV 121.8 fL MCH 43.3 pg MCHC 35.5 g/dL RDW 13.2 % Platelet Count 348 10 3/cmm MPV 9.8 fL Neutrophils 5.1 10 3/uL Lymphocytes 2.0 10 3/uL Monocytes 0.6 10 3/uL Eosinophils 0.1 10 3/uL Basophils 0.1 10 3/uL Neutrophil % 63.4 % Lymphocyte % 25.2 % Monocyte % 7.6 % Eosinophil % 1.2 % Basophils % 1.1 % Impression: 1. Patient with polycythemia rubra vera, initially diagnosed in 2012. His disease has been managed adequately with hydroxyurea and aspirin prophylaxis. 2. He has benign prostatic hypertrophy, adequately managed with finasteride. 3. He has a significant family history for prostate cancer. He was seen here initially December 2017. His hematocrit was slightly elevated, but his other blood counts were normal. He continued hydroxyurea at the same dosage, which he had been tolerating well. He has since then continued to tolerate the hydroxyurea without adverse effects, and his blood counts remain adequately controlled. As of his follow-up visit on 11/01/2019 he appeared stable clinically and he continued hydroxyurea 500 mg in the morning and 1000 mg in the evening. On 01/30/2020 he sustained multiple rib fractures and other injuries after being thrown from a horse. He was seen in the emergency room on 02/02/2020, at which point he was found to be severely neutropenic, ANC 500. He was not febrile. Hemoglobin was adequate at 13.3 g and platelet count was low normal at 141,000. He has remained afebrile on antibiotic coverage with Levaquin. His hydroxyurea has been on hold. Plan: I have no adequate explanation as to why he would abruptly become neutropenic on the hydroxyurea when he had previously been very stable. In any case, his CBC will be rechecked. If the neutropenia persists, he will need bone marrow aspiration/biopsy. However, assuming his blood counts recover, his hydroxyurea can be reinstituted at a lower dosage. Blood counts will be monitored weekly. Signed By: Mikhail Del Cid M.D. <<Signature on File>>
== END 2020-02-07 14:16 | disposition home or self-care (01) ==
LOC: ONCMED 14:18
PROVIDERS: PCP Electrodiagnostic Medicine; Visit Provider Internal Medicine Medical Oncology
DX: D45 Polycythemia vera (principal); N40.0 Benign prostatic hyperplasia without lower urinary tract symptoms; Z80.42 Family history of malignant neoplasm of prostate
CPT/HCPCS: 85025; 99214

== ENCOUNTER 2020-02-14 10:14 | Outpatient (CLI) | payer BC, SELFPAY ==
[2020-02-14 10:50] LABS: Hematocrit 35.5 % (42.0-52.0); Hemoglobin 12.2 g/dL (11.7-16.6); Mean Corpuscular HGB Conc 34.4 g/dL (30.0-36.0); Mean Corpuscular Volume 107.6 fL (80-94); Mean Platelet Volume 9.9 fL (7.4-10.4); Nucleated Red Blood Cells % 0 %; Platelet Count 176 10^3/cmm (130-400); Red Cell Distribution Width 22.2 % (12.1-15.1)
[2020-02-14 11:38] LABS: Slide Review Slide Review Perform
[2020-02-14 11:43] LABS: Absolute Eosinophils 0.1 10^3/cmm (0.0-0.7); Eosinophils 2 %; Lymphocytes 49 %; Lymphocytes Absolute 3.9 10^3/cmm (1.2-3.4); Monocytes Absolute 0.7 10^3/cmm (0.1-0.6); Segmented Neutrophils 11 %; Total Cells Counted 100 (0-100)
[2020-02-14 11:44] LABS: Blastocytes 6 % (0-0)
[2020-02-14 11:45] LABS: Absolute Neutrophil 0.7 10^3/cmm (1.4-6.5); Absolute Segmented Neutrophil 0.7 10/cmm (1.6-7.1); Platelet Estimate Normal (Normal)
[2020-02-14 13:50] LABS: LAB Peripheral Smear Sent for Review
== END 2020-02-14 10:15 | disposition home or self-care (01) ==
LOC: ONCMED 10:17
PROVIDERS: PCP Electrodiagnostic Medicine; Visit Provider Internal Medicine Medical Oncology
DX: D45 Polycythemia vera (principal)
CPT/HCPCS: 85007; 85025

== ENCOUNTER 2020-02-28 09:25 | Outpatient (CLI) | payer BC, SELFPAY ==
[2020-02-28 10:32] LABS: Basophils % 0.3 %; Eosinophils % 0.6 %; Hematocrit 29.3 % (42.0-52.0); Hemoglobin 9.9 g/dL (11.7-16.6); Lymphocytes % 58.8 %; Mean Corpuscular HGB Conc 33.8 g/dL (30.0-36.0); Mean Corpuscular Hemoglobin 36.4 pg (28.0-34.0); Mean Corpuscular Volume 107.7 fL (80-94); Mean Platelet Volume 10.7 fL (7.4-10.4); Monocytes % 29.1 %; Neutrophils % 7.7 %; Nucleated Red Blood Cells % 0 %; Platelet Count 185 10^3/cmm (130-400); Red Blood Count 2.72 10^6/uL (4.1-5.3); Red Cell Distribution Width 21.9 % (12.1-15.1); White Blood Count 3.5 10^3/uL (4.0-10.0)
[2020-02-28 11:27] LABS: Slide Review Slide Review Perform
[2020-02-28 11:28] LABS: Neutrophils # 0.3 10^3/uL (1.8-7.7)
== END 2020-02-28 09:26 | disposition home or self-care (01) ==
LOC: ONCMED 09:31
PROVIDERS: Visit Provider Internal Medicine Medical Oncology
DX: D45 Polycythemia vera (principal)
CPT/HCPCS: 36415; 85025

== ENCOUNTER 2020-03-30 06:03 | Outpatient (RCR) | payer BC, SELFPAY ==
[2020-03-20 12:51] LABS: Basophils % 0.7 %; Eosinophils % 0.7 %; Hematocrit 22.2 % (42.0-52.0); Hemoglobin 7.4 g/dL (11.7-16.6); Lymphocytes % 71.6 %; Mean Corpuscular HGB Conc 33.3 g/dL (30.0-36.0); Mean Corpuscular Hemoglobin 35.1 pg (28.0-34.0); Mean Corpuscular Volume 105.2 fL (80-94); Mean Platelet Volume 11.4 fL (7.4-10.4); Monocytes # 0.2 10^3/uL (0.2-0.9); Monocytes % 12.8 %; Neutrophils % 12.8 %; Nucleated Red Blood Cells % 0 %; Platelet Count 43 10^3/cmm (130-400); Red Blood Count 2.11 10^6/uL (4.1-5.3); Red Cell Distribution Width 19.7 % (12.1-15.1); White Blood Count 1.4 10^3/uL (4.0-10.0)
[2020-03-20 13:05] LABS: Alanine Aminotransferase 32 U/L (0-41); Albumin Level 3.9 g/dL (3.5-5.2); Alkaline Phosphatase 96 IU/L (40-130); Aspartate Amino Transferase 20 U/L (0-40); Blood Urea Nitrogen 14 mg/dL (8-23); Calcium 8.6 mg/dL (8.5-10.5); Carbon Dioxide 24 mmol/L (22-29); Chloride 104 mmol/L (98-107); Globulin 2.8 g/dL (1.3-4.6); Glucose 111 mg/dL (65-115); Osmolality Calculated 283 mOsm/kg (285-295); Sodium 138 mmol/L (136-145); Total Bilirubin 0.9 mg/dL (0.15-1.2); Total Protein 6.7 g/dL (6.6-8.7)
[2020-03-20 13:14] LABS: Slide Review Slide Review Perform
[2020-03-20 13:16] LABS: Neutrophils # 0.18 10^3/uL (1.8-7.7)
[2020-03-20 13:54] LABS: Lactate Dehydrogenase 222 U/L (135-225)
[2020-03-21] VITALS (10 sets, daily range): BP systolic 93–110; BP diastolic 51–64; PULSE 81–85; RESP 18; TEMP 36–36.6; O2SAT 98–100
[2020-03-21] MEDS: sodium chloride 0.9% 250 ML 999 ML IV (09:20)
[2020-03-23 13:59] LABS: Hematocrit 27.1 % (42.0-52.0); Lymphocytes # 0.9 10^3/uL (0.8-4.8); Lymphocytes % 77.5 %; Mean Corpuscular HGB Conc 33.2 g/dL (30.0-36.0); Mean Corpuscular Volume 96.4 fL (80-94); Mean Platelet Volume 11.3 fL (7.4-10.4); Monocytes # 0.1 10^3/uL (0.2-0.9); Monocytes % 8.3 %; Neutrophils % 13.4 %; Nucleated Red Blood Cells % 0 %; Platelet Count 36 10^3/cmm (130-400); Red Blood Count 2.81 10^6/uL (4.1-5.3); Red Cell Distribution Width 20.3 % (12.1-15.1); White Blood Count 1.2 10^3/uL (4.0-10.0)
[2020-03-23 14:17] LABS: Alanine Aminotransferase 22 U/L (0-41); Albumin Level 4.2 g/dL (3.5-5.2); Alkaline Phosphatase 97 IU/L (40-130); Anion Gap 15.2 (5-19); Aspartate Amino Transferase 13 U/L (0-40); Blood Urea Nitrogen 18 mg/dL (8-23); Calcium 9.4 mg/dL (8.5-10.5); Carbon Dioxide 23 mmol/L (22-29); Chloride 102 mmol/L (98-107); Globulin 2.7 g/dL (1.3-4.6); Glucose 117 mg/dL (65-115); Lactate Dehydrogenase 198 U/L (135-225); Osmolality Calculated 280 mOsm/kg (285-295); Potassium 4.2 mmol/L (3.5-5.1); Sodium 136 mmol/L (136-145); Total Protein 6.9 g/dL (6.6-8.7)
[2020-03-23 14:21] LABS: Neutrophils # 0.16 10^3/uL (1.8-7.7)
[2020-03-23 14:22] LABS: Slide Review Slide Review Perform
[2020-03-27 10:21] LABS: Hematocrit 22.8 % (42.0-52.0); Hemoglobin 7.5 g/dL (11.7-16.6); Lymphocytes # 0.7 10^3/uL (0.8-4.8); Mean Corpuscular HGB Conc 32.9 g/dL (30.0-36.0); Mean Corpuscular Hemoglobin 31.8 pg (28.0-34.0); Mean Corpuscular Volume 96.6 fL (80-94); Mean Platelet Volume 10.6 fL (7.4-10.4); Monocytes # 0.1 10^3/uL (0.2-0.9); Neutrophils % 5.7 %; Nucleated Red Blood Cells % 0 %; Red Blood Count 2.36 10^6/uL (4.1-5.3); Red Cell Distribution Width 18.2 % (12.1-15.1)
[2020-03-27 10:32] LABS: Alanine Aminotransferase 18 U/L (0-41); Albumin Level 4.1 g/dL (3.5-5.2); Alkaline Phosphatase 99 IU/L (40-130); Anion Gap 14.6 (5-19); Aspartate Amino Transferase 13 U/L (0-40); Blood Urea Nitrogen 14 mg/dL (8-23); Calcium 9.4 mg/dL (8.5-10.5); Carbon Dioxide 24 mmol/L (22-29); Chloride 101 mmol/L (98-107); Globulin 2.7 g/dL (1.3-4.6); Glucose 122 mg/dL (65-115); Lactate Dehydrogenase 160 U/L (135-225); Osmolality Calculated 280 mOsm/kg (285-295); Potassium 3.6 mmol/L (3.5-5.1); Sodium 136 mmol/L (136-145); Total Bilirubin 1.2 mg/dL (0.15-1.2); Total Protein 6.8 g/dL (6.6-8.7)
[2020-03-27 10:54] LABS: Lymphocytes % 89.3 %
[2020-03-27 10:55] LABS: Slide Review Slide Review Perform
[2020-03-27 10:57] LABS: Neutrophils # 0.05 10^3/uL (1.8-7.7); Platelet Count 28 10^3/cmm (130-400); White Blood Count 0.9 10^3/uL (4.0-10.0)
[2020-03-28] VITALS (10 sets, daily range): BP systolic 93–99; BP diastolic 56–64; PULSE 81–87; RESP 18; TEMP 35.9–36.3; O2SAT 94–97
[2020-03-28] MEDS: sodium chloride 0.9% 250 ML 999 ML IV (08:25)
[2020-03-30 10:03] LABS: Hematocrit 28.6 % (42.0-52.0); Hemoglobin 9.4 g/dL (11.7-16.6); Lymphocytes # 0.9 10^3/uL (0.8-4.8); Mean Corpuscular HGB Conc 32.9 g/dL (30.0-36.0); Mean Corpuscular Volume 94.4 fL (80-94); Mean Platelet Volume 11.3 fL (7.4-10.4); Monocytes # 0.1 10^3/uL (0.2-0.9); Monocytes % 12.4 %; Neutrophils % 4.7 %; Nucleated Red Blood Cells % 0 %; Platelet Count 48 10^3/cmm (130-400); Red Blood Count 3.03 10^6/uL (4.1-5.3); Red Cell Distribution Width 16.9 % (12.1-15.1); White Blood Count 1.1 10^3/uL (4.0-10.0)
[2020-03-30 10:21] LABS: Alanine Aminotransferase 16 U/L (0-41); Albumin Level 3.8 g/dL (3.5-5.2); Alkaline Phosphatase 92 IU/L (40-130); Anion Gap 12.2 (5-19); Aspartate Amino Transferase 13 U/L (0-40); Blood Urea Nitrogen 13 mg/dL (8-23); Calcium 8.9 mg/dL (8.5-10.5); Carbon Dioxide 23 mmol/L (22-29); Chloride 103 mmol/L (98-107); Globulin 3.3 g/dL (1.3-4.6); Glucose 96 mg/dL (65-115); Lactate Dehydrogenase 160 U/L (135-225); Osmolality Calculated 274 mOsm/kg (285-295); Potassium 4.2 mmol/L (3.5-5.1); Sodium 134 mmol/L (136-145); Total Bilirubin 0.8 mg/dL (0.15-1.2); Total Protein 7.1 g/dL (6.6-8.7)
[2020-03-30 10:39] LABS: Neutrophils # 0.05 10^3/uL (1.8-7.7)
[2020-03-30 10:40] LABS: Slide Review Slide Review Perform
== END 2020-03-31 23:59 | disposition home or self-care (01) ==
LOC: ONCMED 06:03
PROVIDERS: Visit Provider Internal Medicine Medical Oncology
DX: C92.00 Acute myeloblastic leukemia, not having achieved remission (principal)
CPT/HCPCS: 36430; 36592; 80053; 83615; 85025; 86850; 86900; 86920; 99211; J1642; J7050; P9040

== ENCOUNTER 2020-09-18 06:07 | Outpatient (CLI) | payer BC, SELFPAY ==
[2020-09-18 13:30] LABS: Basophils % 0.4 %; Eosinophils # 0.1 10^3/uL (0.0-0.8); Eosinophils % 1.9 %; Hematocrit 41.4 % (42.0-52.0); Hemoglobin 13.6 g/dL (11.7-16.6); Lymphocytes # 1.5 10^3/uL (0.8-4.8); Lymphocytes % 22.7 %; Mean Corpuscular HGB Conc 32.9 g/dL (30.0-36.0); Mean Corpuscular Volume 106.4 fL (80-94); Mean Platelet Volume 8.7 fL (7.4-10.4); Monocytes # 0.6 10^3/uL (0.2-0.9); Monocytes % 8.9 %; Neutrophils % 65.7 %; Nucleated Red Blood Cells % 0 %; Platelet Count 173 10^3/cmm (130-400); Red Blood Count 3.89 10^6/uL (4.1-5.3); Red Cell Distribution Width 15.9 % (12.1-15.1); White Blood Count 6.7 10^3/uL (4.0-10.0)
[2020-09-18 14:21] LABS: Alanine Aminotransferase 29 U/L (0-41); Albumin Level 4.3 g/dL (3.5-5.2); Alkaline Phosphatase 108 IU/L (40-130); Anion Gap 12.8 (5-19); Aspartate Amino Transferase 32 U/L (0-40); Blood Urea Nitrogen 15 mg/dL (8-23); Calcium 9.8 mg/dL (8.5-10.5); Carbon Dioxide 26 mmol/L (22-29); Chloride 104 mmol/L (98-107); Globulin 2.9 g/dL (1.3-4.6); Glucose 122 mg/dL (65-115); Lactate Dehydrogenase 166 U/L (135-225); Magnesium 1.9 mg/dL (1.7-2.3); Osmolality Calculated 288 mOsm/kg (285-295); Potassium 4.8 mmol/L (3.5-5.1); Sodium 138 mmol/L (136-145); Total Bilirubin 0.3 mg/dL (0.15-1.2); Total Protein 7.2 g/dL (6.6-8.7); Uric Acid 5.2 mg/dL (3.4-7.0)
[2020-09-21 04:58] LABS: CMV DNA By PCR <200 IU/mL; CMV DNA, QN PCR <2.30 Log IU/mL; SOURCE SERUM
== END 2020-09-18 06:08 | disposition home or self-care (01) ==
LOC: ONCMED 06:09
PROVIDERS: Visit Provider Internal Medicine Medical Oncology
DX: D45 Polycythemia vera (principal)
CPT/HCPCS: 36592; 80053; 83615; 83735; 84550; 85025; 87496

== ENCOUNTER 2020-09-25 06:25 | Outpatient (RCR) | payer BC, SELFPAY ==
[2020-09-25 14:49] LABS: Basophils % 0.5 %; Eosinophils # 0.1 10^3/uL (0.0-0.8); Eosinophils % 1.4 %; Lymphocytes # 1.4 10^3/uL (0.8-4.8); Lymphocytes % 24.6 %; Mean Corpuscular HGB Conc 33.3 g/dL (30.0-36.0); Mean Corpuscular Hemoglobin 34.7 pg (28.0-34.0); Mean Platelet Volume 9.3 fL (7.4-10.4); Monocytes # 0.6 10^3/uL (0.2-0.9); Monocytes % 11.2 %; Neutrophils # 3.48 10^3/uL (1.8-7.7); Neutrophils % 62.1 %; Nucleated Red Blood Cells % 0 %; Platelet Count 117 10^3/cmm (130-400); Red Blood Count 3.75 10^6/uL (4.1-5.3); Red Cell Distribution Width 14.7 % (12.1-15.1); White Blood Count 5.6 10^3/uL (4.0-10.0)
[2020-09-25 15:55] LABS: Alanine Aminotransferase 35 U/L (0-41); Albumin Level 4.2 g/dL (3.5-5.2); Alkaline Phosphatase 104 IU/L (40-130); Anion Gap 14.1 (5-19); Aspartate Amino Transferase 34 U/L (0-40); Blood Urea Nitrogen 15 mg/dL (8-23); Carbon Dioxide 26 mmol/L (22-29); Chloride 106 mmol/L (98-107); Glucose 82 mg/dL (65-115); Lactate Dehydrogenase 151 U/L (135-225); Magnesium 1.7 mg/dL (1.7-2.3); Osmolality Calculated 294 mOsm/kg (285-295); Potassium 4.1 mmol/L (3.5-5.1); Sodium 142 mmol/L (136-145); Total Bilirubin 0.4 mg/dL (0.15-1.2); Total Protein 7.2 g/dL (6.6-8.7); Uric Acid 4.9 mg/dL (3.4-7.0)
[2020-09-27 16:22] LABS: Calcium 9.7 mg/dL (8.5-10.5)
[2020-09-30 11:24] LABS: CMV DNA By PCR <200 IU/mL; CMV DNA, QN PCR <2.30 Log IU/mL; SOURCE SERUM
== END 2020-10-01 23:59 | disposition home or self-care (01) ==
LOC: ONCMED 06:25
PROVIDERS: Visit Provider Internal Medicine Medical Oncology
DX: C92.00 Acute myeloblastic leukemia, not having achieved remission (principal); Z94.84 Stem cells transplant status; Z51.81 Encounter for therapeutic drug level monitoring; Z79.899 Other long term (current) drug therapy; D45 Polycythemia vera
CPT/HCPCS: 80053; 80197; 83615; 83735; 84550; 85025; 87496; 96374; J1642

== ENCOUNTER 2020-10-06 10:53 | Outpatient (CLI) | payer MEDICARE, BC, SELFPAY ==
--- NOTE | 2020-10-06 | CT_ITS ---
WS: [id number] CT CHEST TECHNIQUE: Noncontrast CT of the chest with coronal and sagittal reformatted images. CLINICAL INFORMATION: PULMONARY ASPERGLLOSIS COMPARISON: CT chest February 02, 2020 DLP: 891.[address] scans at [facility] use at least one of these dose optimization techniques: automat ed exposure control; mA and/or kV adjustment per patient size (includes targeted exams where dose is matched to clinical indication); or iterative reconstruction. FINDINGS: Moderate chronic emphysematous changes. No acute pulmonary infiltrates. Fibrosis in the left upper lo be. No evidence of cavitary pneumonia. No mediastinal or hilar lymphadenopathy. Aortic calcification. Coronary calcification. No axillary ly mphadenopathy. Cholecystectomy clips. Normal GE junction. Adrenal glands are normal. Fatty atrophy of the pancreas. Chronic rib fractures with callus formation. CT/CT chest wo con [id number] IMPRESSION: 1. Moderate chronic emphysematous changes. No acute pulmonary infiltrates. 2. Fibrosis in the left upper lobe 3. No cavitary pneumonia. 4. No suspicious pulmonary parenchymal abnormalities. 5. No mediastinal or hilar lymphadenopathy. 6. Prior cholecystectomy.
== END 2020-10-06 10:54 | disposition home or self-care (01) ==
LOC: RADWPI 10:56
PROVIDERS: Visit Provider Internal Medicine Infectious Disease
DX: B44.1 Other pulmonary aspergillosis (principal); J84.10 Pulmonary fibrosis, unspecified; Z90.49 Acquired absence of other specified parts of digestive tract
CPT/HCPCS: 71250

== ENCOUNTER 2020-10-09 06:15 | Outpatient (RCR) | payer MEDICARE, BC, SELFPAY ==
[2020-10-09 14:23] LABS: Basophils % 0.2 %; Eosinophils # 0.1 10^3/uL (0.0-0.8); Hematocrit 39.8 % (42.0-52.0); Hemoglobin 13.3 g/dL (11.7-16.6); Lymphocytes # 1.5 10^3/uL (0.8-4.8); Mean Corpuscular HGB Conc 33.4 g/dL (30.0-36.0); Mean Corpuscular Hemoglobin 34.5 pg (28.0-34.0); Mean Corpuscular Volume 103.4 fL (80-94); Mean Platelet Volume 9.2 fL (7.4-10.4); Monocytes # 0.6 10^3/uL (0.2-0.9); Monocytes % 11.1 %; Neutrophils % 62.2 %; Nucleated Red Blood Cells % 0 %; Platelet Count 133 10^3/cmm (130-400); Red Blood Count 3.85 10^6/uL (4.1-5.3); Red Cell Distribution Width 14.3 % (12.1-15.1); White Blood Count 5.8 10^3/uL (4.0-10.0)
[2020-10-09 14:44] LABS: Alanine Aminotransferase 37 U/L (0-41); Albumin Level 4.3 g/dL (3.5-5.2); Alkaline Phosphatase 111 IU/L (40-130); Anion Gap 12.1 (5-19); Aspartate Amino Transferase 39 U/L (0-40); Blood Urea Nitrogen 17 mg/dL (8-23); Calcium 9.8 mg/dL (8.5-10.5); Carbon Dioxide 26 mmol/L (22-29); Chloride 104 mmol/L (98-107); Globulin 2.9 g/dL (1.3-4.6); Glucose 87 mg/dL (65-115); Lactate Dehydrogenase 145 U/L (135-225); Magnesium 1.8 mg/dL (1.7-2.3); Osmolality Calculated 287 mOsm/kg (285-295); Potassium 4.1 mmol/L (3.5-5.1); Sodium 138 mmol/L (136-145); Total Bilirubin 0.4 mg/dL (0.15-1.2); Total Protein 7.2 g/dL (6.6-8.7); Uric Acid 5.1 mg/dL (3.4-7.0)
[2020-10-12 16:47] LABS: CMV DNA By PCR <200 IU/mL; CMV DNA, QN PCR <2.30 Log IU/mL; SOURCE WHOLE BLOOD
== END 2020-10-29 23:59 | disposition home or self-care (01) ==
LOC: ONCMED 06:15
PROVIDERS: Visit Provider Internal Medicine Medical Oncology
DX: D45 Polycythemia vera (principal)
CPT/HCPCS: 80053; 80197; 83615; 83735; 84550; 85025; 87496; 96374; J1642

== ENCOUNTER 2021-01-08 08:25 | Outpatient (CLI) | payer MEDICARE, BC, SELFPAY ==
--- NOTE | 2021-01-12 07:00 | ONC FU_ITS ---
Dr. Del Cid Patient Follow-Up Note Patient: Jay Dash Unit #: [id number]: [id number] Dicatated By: Mikhail Del Cid M.D.Date of Visit:January 08, 2021 Onc Med Follow-up/Prog Note Chief Complaint: Polycythemia rubra vera/AML. History of Present Illness: This is a 70 year-old man with polycythemia rubra vera, JAK2 V617F mutation positive, initially diagnosed in 2010. 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 Sometime around 2010 his family physician had told him that his blood count was high and that he should start donating blood. In 2010 he underwent appendectomy and his postoperative course was complicated by either thrombosis or hemorrhage or both. At that time he was confirmed to have polycythemia rubra vera. He apparently did have a positive JAK2 gene mutation study. He was initially managed with phlebotomy. He began treatment with hydroxyurea sometime around 2016. His disease was controlled pretty well, but he still required phlebotomy about every 2-3 months. He had no further problems with thromboembolism or hemorrhage. I had seen him initially on 01/22/2018 after he had moved to this area from [place]. At that point he was taking 500 mg of hydroxyurea in the morning and 1000 mg in the evening, and he also was on aspirin prophylaxis. His hematocrit was slightly elevated at 47%. His other blood counts were normal. He was phlebotomized and he continued hydroxyurea at the same dosage. As of his follow-up visit on 11/01/2019, his blood counts remained adequately controlled on ydroxyurea, and he appeared stable clinically. On 02/02/2020 he presented to the emergency room 3 days after he had been thrown from a horse. He had suffered some rib fractures on the right. The main reason he went in was that he had developed swelling in the lower extremities. His CBC at that time showed a decline in his hemoglobin to 13 g with hematocrit 38%. The white blood cell count had dropped to 2100 with absolute neutrophil count 500. The platelet count was low normal at 141,000. He was not febrile. He was given empiric antibiotic coverage with Levaquin, and the hydroxyurea was put on hold. During subsequent follow-up he remained neutropenic and he was noted to have circulating blasts on his blood smear. He was referred to Dr. Crystal Young at [facility] where he was confirmed to have acute myeloid leukemia, CHRYSTAL M2, with associated TP53 mutation. His treatment included 2 cycles of 10-day decitabine plus venetoclax, complicated by prolonged cytopenias and invasive fungal aspergillosis/pneumonia. 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 His leukemia treatment was complicated by catheter associated thrombosis, for which he remains on anticoagulation with apixaban. He also developed seizures, controlled on Keppra. He has additional history of benign prostatic hypertrophy, which has been managed adequately with finasteride. He is a nonsmoker. INTERIM HISTORY: During his ongoing surveillance, his comprehensive metabolic profile on 12/21/2020 showed new, mild transaminitis. He had also developed mouth sores and a skin eruption. He was encouraged to follow-up at [facility], and he did see Dr. Young on 12/25/2020. 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 He is seen now for a follow-up visit. He had noted improvement in his energy/activity tolerance with the prednisone. He has been doing light work at home. ECOG score is 1. Appetite also has been better. He does not have fever or night sweats. He says that he was having some drainage from his left eye, but that has stopped now. He still has some mild sores and sore throat. It is getting better, though. He does not have cough, and he does not complain of shortness of breath or chest pain. He has no GI or complaints. He has no significant joint or bone pain. He does not complain of headache or dizziness. He has no focal neurologic symptoms. His skin eruption is almost completely resolved. Medications: Aspirin 1 Tablet (of 81 mg) Oral daily, Finasteride 1 Tablet (of 5 mg) Oral daily, Garlic 2 Capsule (of 200 mg) Tablet Oral daily, Hydrea (500 mg) Capsule Oral Take as Directed, HYDROcodone-Acetaminophen 1 Tablet (of 5-325 mg) Oral q PRN, Levaquin 1 Tablet (of 500 mg) Oral daily for 2 days, Multivitamin Adults 1 Tablet Oral daily, shark oil 1 Tablet daily Allergies: Acetaminophen, hydrocodone, and Meperidine HCl. Vital Signs: Performed on January 08, 2021 09:10 Height - 70.50 in Weight - 181 lbs (LOW) BSA - 2.01 sq.m BMI - 25.60 Temperature - 97.5 F (LOW) Pulse - 84 /min Respiration - 18 /min BP - 115/75 mm(hg) O2 Sat - 96 % Pain - 0 Fatigue - 0 Physical Examination: Constitutional - He looks pretty good generally, Eyes - Sclerae nonicteric. Conjunctivae clear, ENMT - There are residual ulcerations in the posterior pharynx and there is some associated white discoloration, Hematologic/Lymphatic - No cervical, clavicular, or axillary adenopathy, Respiratory - Lungs sound clear, Cardiovascular - Heart rhythm is regular. There is no murmur, gallop, or rub noted, Abdomen - Soft. Liver and spleen are not enlarged. There is no abdominal mass or ascites noted and there is no inguinal adenopathy, Extremities - No edema, Integumentary - There is only a very minimal residual skin eruption, Neurologic - No focal neurologic deficits noted. Lab/Imaging: Test performed on January 01, 2021 13:19 Glucose 142 mg/dL LDH, Total 173 IU/L BUN 16 mg/dL Creatinine 0.91 mg/dL Cr Clearance (Est) 85.40 mL/min Sodium 137 mmol/L Potassium 4.0 mmol/L Chloride 104 mmol/L CO2 19 mmol/L Calcium 9.5 mg/dL Protein, Total 6.6 g/dL Albumin 4.3 g/dL Globulin 2.3 g/dL Bilirubin, Total 0.7 mg/dL Alkaline Phosphatase 136 IU/L AST (SGOT) 51 IU/L ALT (SGPT) 105 IU/L WBC 8.0 10^9/L RBC 3.89 10^12/L HGB 14.2 g/dL HCT 39.9 % MCV 102.6 fl MCH 36.5 pg MCHC 35.6 g/dL RDW 14.5 % Platelet Count 135 10^9/L MPV 9.0 fL Test performed on Dec 21, 2020 16:22 C-Reactive Protein (mg/L) 4.7 mg/L Test performed on Nov 28, 2020 11:12 Magnesium 2.1 mg/dL Uric Acid 5.4 mg/dL Phosphorous 3.2 mg/dL Neutrophils (Gran) 2432 10^9/L Lymphocytes 1012 10^9/L Monocytes 448 10^9/L Eosinophils 88 10^9/L Basophils 20 10^9/L Manual Lymphocytes 25.3 % Manual Monocytes 11.2 % Manual Eosinophils 2.2 % Manual Basophils 0.5 % Test performed on Oct 09, 2020 13:56 Tacrolimus (FK506) 3.1 mcg/L Anion Gap 12.1 Osmolality - Calculated 287 mOsm/kg Neutrophil % 62.2 % Lymphocyte % 25.0 % Monocyte % 11.1 % Eosinophil % 1.0 % Basophils % 0.2 % NRBC % 0 % CMV DNA, PCR (IU/mL) < 200 IU/mL CMV DNA Log10, PCR < 2.30 Log IU/mL Problem List: 1. Polycythemia rubra vera, JAK2 V617F mutation positive, initially diagnosed in 2010. His disease had been managed adequately with hydroxyurea and aspirin prophylaxis. 2. 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 3. On 08/02/2020 he underwent reduced-intensity flu/Bu2 allogenic stem cell transplant from HLA-matched sibbling donor. 4. He has post transplant GVHD. 5. His treatment was complicated by catheter-related thrombosis, on anticoagulation with apixaban. 6. He also has history of seizures, managed with Keppra. 7. He has benign prostatic hypertrophy, adequately managed with finasteride. 8. He has a significant family history for prostate cancer. Problems Addressed with this Encounter and Plan: 1. Patient with polycythemia rubra vera, JAK2 V617F mutation positive, initially diagnosed in 2010. His disease had been managed adequately with hydroxyurea and aspirin prophylaxis. He is currently on expectant management. 2. 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 His initial treatment included 2 cycles of 10-day decitabine with venetoclax. His treatment was complicated by invasive aspergillosis/pneumonia, but he apparently had clearance of blasts on repeat bone marrow aspiration/biopsy. On 08/02/2020 he underwent reduced-intensity flu/Bu2 allogenic stem cell transplant from HLA-matched sibbling donor. During follow-up there has been no evidence of relapse of the leukemia, but he has developed post transplant GVHD, initially managed with prednisone. His treatment now is being transitioned to sirolimus and a topical steroid. His blood counts, chemistry studies, and sirolimus level will be monitored at 2-week intervals. He is continuing his regular follow-up with Dr. Young at [facility]. I will see him again as needed. 3. He remains on anticoagulation with apixaban for catheter related thrombosis. Signed By: Mikhail Del Cid M.D. <<Signature on File>>
== END 2021-01-08 08:26 | disposition home or self-care (01) ==
LOC: ONCMED 08:28
PROVIDERS: Visit Provider Internal Medicine Medical Oncology
DX: D45 Polycythemia vera (principal); C92.00 Acute myeloblastic leukemia, not having achieved remission; G40.909 Epilepsy, unspecified, not intractable, without status epilepticus; N40.0 Benign prostatic hyperplasia without lower urinary tract symptoms; Z79.01 Long term (current) use of anticoagulants; Z85.46 Personal history of malignant neoplasm of prostate; Z79.899 Other long term (current) drug therapy; Z92.21 Personal history of antineoplastic chemotherapy
CPT/HCPCS: 99215

== ENCOUNTER 2021-02-05 17:18 | Outpatient (CLI) | payer MEDICARE, BC, SELFPAY ==
[2021-02-05 17:45] LABS: Eosinophils % 0.4 %; Hematocrit 36.1 % (42.0-52.0); Hemoglobin 12.6 g/dL (11.7-16.6); Lymphocytes # 1.3 10^3/uL (0.8-4.8); Lymphocytes % 47.8 %; Mean Corpuscular HGB Conc 34.9 g/dL (30.0-36.0); Mean Corpuscular Hemoglobin 36.4 pg (28.0-34.0); Mean Corpuscular Volume 104.3 fL (80-94); Mean Platelet Volume 9.7 fL (7.4-10.4); Monocytes # 0.4 10^3/uL (0.2-0.9); Monocytes % 14.2 %; Neutrophils # 1.01 10^3/uL (1.8-7.7); Neutrophils % 37.6 %; Nucleated Red Blood Cells % 0 %; Platelet Count 48 10^3/cmm (130-400); Red Blood Count 3.46 10^6/uL (4.1-5.3); Red Cell Distribution Width 12.6 % (12.1-15.1); White Blood Count 2.7 10^3/uL (4.0-10.0)
[2021-02-05 17:58] LABS: Albumin Level 3.7 g/dL (3.5-5.2); Alkaline Phosphatase 94 IU/L (40-130); Anion Gap 17.8 (5-19); Blood Urea Nitrogen 9 mg/dL (8-23); Calcium 8.6 mg/dL (8.5-10.5); Carbon Dioxide 22 mmol/L (22-29); Chloride 101 mmol/L (98-107); Globulin 1.9 g/dL (1.3-4.6); Glucose 94 mg/dL (65-115); Lactate Dehydrogenase 311 U/L (135-225); Magnesium 1.9 mg/dL (1.7-2.3); Osmolality Calculated 282 mOsm/kg (285-295); Phosphorus 2.7 mg/dL (2.5-4.5); Potassium 3.8 mmol/L (3.5-5.1); Sodium 137 mmol/L (136-145); Total Bilirubin 0.2 mg/dL (0.15-1.2); Total Protein 5.6 g/dL (6.6-8.7); Uric Acid 4.2 mg/dL (3.4-7.0)
[2021-02-05 18:11] LABS: Alanine Aminotransferase < 5 U/L (0-41); Aspartate Amino Transferase 5 U/L (0-40)
== END 2021-02-05 17:19 | disposition home or self-care (01) ==
PROVIDERS: Visit Provider Internal Medicine Medical Oncology
DX: C92.00 Acute myeloblastic leukemia, not having achieved remission (principal)
CPT/HCPCS: 80053; 80197; 83615; 83735; 84100; 84550; 85025; 87497

== ENCOUNTER 2021-02-28 17:17 | Outpatient (CLI) | payer MEDICARE, BC, SELFPAY ==
[2021-02-28 17:33] LABS: Basophils % 0.2 %; Eosinophils % 0.6 %; Hematocrit 40.5 % (42.0-52.0); Hemoglobin 13.5 g/dL (11.7-16.6); Lymphocytes % 41.9 %; Mean Corpuscular HGB Conc 33.3 g/dL (30.0-36.0); Mean Platelet Volume 9.6 fL (7.4-10.4); Monocytes # 0.3 10^3/uL (0.2-0.9); Monocytes % 6.7 %; Neutrophils # 2.37 10^3/uL (1.8-7.7); Neutrophils % 49.8 %; Nucleated Red Blood Cells % 0 %; Platelet Count 90 10^3/cmm (130-400); Red Blood Count 3.75 10^6/uL (4.1-5.3); Red Cell Distribution Width 14.4 % (12.1-15.1); White Blood Count 4.8 10^3/uL (4.0-10.0)
[2021-02-28 18:07] LABS: Alanine Aminotransferase 68 U/L (0-41); Albumin Level 4.1 g/dL (3.5-5.2); Alkaline Phosphatase 85 IU/L (40-130); Anion Gap 13.5 (5-19); Aspartate Amino Transferase 38 U/L (0-40); Blood Urea Nitrogen 17 mg/dL (8-23); Calcium 9.3 mg/dL (8.5-10.5); Carbon Dioxide 26 mmol/L (22-29); Chloride 103 mmol/L (98-107); Globulin 1.8 g/dL (1.3-4.6); Glucose 91 mg/dL (65-115); Lactate Dehydrogenase 371 U/L (135-225); Osmolality Calculated 289 mOsm/kg (285-295); Phosphorus 2.8 mg/dL (2.5-4.5); Potassium 3.5 mmol/L (3.5-5.1); Sodium 139 mmol/L (136-145); Total Bilirubin 0.3 mg/dL (0.15-1.2); Total Protein 5.9 g/dL (6.6-8.7); Uric Acid 3.8 mg/dL (3.4-7.0)
== END 2021-02-28 17:18 | disposition home or self-care (01) ==
PROVIDERS: Visit Provider Internal Medicine Medical Oncology
DX: C92.00 Acute myeloblastic leukemia, not having achieved remission (principal)
CPT/HCPCS: 80053; 83615; 83735; 84100; 84550; 85025

== ENCOUNTER 2021-03-14 17:05 | Outpatient (CLI) | payer MEDICARE, BC, SELFPAY ==
[2021-03-14 17:50] LABS: Basophils % 0.3 %; Eosinophils % 0.3 %; Hematocrit 38.6 % (42.0-52.0); Lymphocytes % 32.8 %; Mean Corpuscular HGB Conc 33.7 g/dL (30.0-36.0); Mean Corpuscular Hemoglobin 36.5 pg (28.0-34.0); Mean Corpuscular Volume 108.4 fL (80-94); Mean Platelet Volume 9.7 fL (7.4-10.4); Monocytes # 0.6 10^3/uL (0.2-0.9); Monocytes % 9.2 %; Neutrophils # 3.44 10^3/uL (1.8-7.7); Neutrophils % 56.3 %; Nucleated Red Blood Cells % 0.7 %; Platelet Count 110 10^3/cmm (130-400); Red Blood Count 3.56 10^6/uL (4.1-5.3); Red Cell Distribution Width 14.9 % (12.1-15.1); White Blood Count 6.1 10^3/uL (4.0-10.0)
[2021-03-14 18:09] LABS: Magnesium 2.1 mg/dL (1.7-2.3); Phosphorus 2.4 mg/dL (2.5-4.5); Uric Acid 3.6 mg/dL (3.4-7.0)
[2021-03-14 18:10] LABS: Alanine Aminotransferase 65 U/L (0-41); Albumin Level 4.1 g/dL (3.5-5.2); Alkaline Phosphatase 87 IU/L (40-130); Anion Gap 18.8 (5-19); Aspartate Amino Transferase 42 U/L (0-40); Blood Urea Nitrogen 18 mg/dL (8-23); Calcium 9.6 mg/dL (8.5-10.5); Carbon Dioxide 24 mmol/L (22-29); Chloride 100 mmol/L (98-107); Globulin 2.4 g/dL (1.3-4.6); Glucose 80 mg/dL (65-115); Osmolality Calculated 289 mOsm/kg (285-295); Potassium 3.8 mmol/L (3.5-5.1); Sodium 139 mmol/L (136-145); Total Bilirubin 0.2 mg/dL (0.15-1.2); Total Protein 6.5 g/dL (6.6-8.7)
[2021-03-14 18:15] LABS: Lactate Dehydrogenase 332 U/L (135-225)
== END 2021-03-14 17:06 | disposition home or self-care (01) ==
PROVIDERS: Visit Provider Internal Medicine Medical Oncology
DX: C92.00 Acute myeloblastic leukemia, not having achieved remission (principal)
CPT/HCPCS: 80053; 83615; 83735; 84100; 84550; 85025

== ENCOUNTER 2021-03-29 17:28 | Outpatient (CLI) | payer MEDICARE, BC, SELFPAY ==
[2021-03-29 17:43] LABS: Basophils % 0.2 %; Eosinophils % 0.4 %; Hematocrit 32.5 % (42.0-52.0); Lymphocytes # 1.4 10^3/uL (0.8-4.8); Lymphocytes % 26.2 %; Mean Corpuscular HGB Conc 33.8 g/dL (30.0-36.0); Mean Corpuscular Hemoglobin 36.3 pg (28.0-34.0); Mean Corpuscular Volume 107.3 fL (80-94); Mean Platelet Volume 9.6 fL (7.4-10.4); Monocytes # 0.4 10^3/uL (0.2-0.9); Monocytes % 8.2 %; Neutrophils # 3.34 10^3/uL (1.8-7.7); Neutrophils % 63.5 %; Nucleated Red Blood Cells # 0.1 /100WBC; Platelet Count 131 10^3/cmm (130-400); Red Blood Count 3.03 10^6/uL (4.1-5.3); Red Cell Distribution Width 16.3 % (12.1-15.1); White Blood Count 5.3 10^3/uL (4.0-10.0)
[2021-03-29 18:23] LABS: Alanine Aminotransferase 57 U/L (0-41); Albumin Level 4.1 g/dL (3.5-5.2); Alkaline Phosphatase 83 IU/L (40-130); Anion Gap 16.6 (5-19); Aspartate Amino Transferase 33 U/L (0-40); Blood Urea Nitrogen 14 mg/dL (8-23); Calcium 9.5 mg/dL (8.5-10.5); Carbon Dioxide 26 mmol/L (22-29); Chloride 101 mmol/L (98-107); Globulin 1.9 g/dL (1.3-4.6); Glucose 112 mg/dL (65-115); Lactate Dehydrogenase 288 U/L (135-225); Magnesium 2.1 mg/dL (1.7-2.3); Osmolality Calculated 289 mOsm/kg (285-295); Phosphorus 4.3 mg/dL (2.5-4.5); Potassium 4.6 mmol/L (3.5-5.1); Sodium 139 mmol/L (136-145); Total Bilirubin 0.3 mg/dL (0.15-1.2); Uric Acid 4.7 mg/dL (3.4-7.0)
== END 2021-03-29 17:29 | disposition home or self-care (01) ==
PROVIDERS: PCP Family Medicine Adult Medicine; Visit Provider Internal Medicine Medical Oncology
DX: C92.00 Acute myeloblastic leukemia, not having achieved remission (principal)
CPT/HCPCS: 80053; 83615; 83735; 84100; 84550; 85025; 87635

== ENCOUNTER 2021-04-05 06:00 | Outpatient (RCR) | payer MEDICARE, BC, SELFPAY | END 2021-05-01 23:59 | disposition home or self-care (01) | LOC: SPT 06:00 | PROVIDERS: PCP Family Medicine Adult Medicine; Referring Provider Family Medicine Adult Medicine; Visit Provider Family Medicine Adult Medicine | DX: M19.90 Unspecified osteoarthritis, unspecified site (principal) | CPT/HCPCS: 97113; 97161 ==

== ENCOUNTER 2021-04-11 17:37 | Outpatient (CLI) | payer MEDICARE, BC, SELFPAY ==
[2021-04-11 18:03] LABS: Basophils % 0.3 %; Eosinophils % 0.8 %; Hematocrit 32.1 % (42.0-52.0); Lymphocytes % 27.3 %; Mean Corpuscular HGB Conc 31.2 g/dL (30.0-36.0); Mean Corpuscular Hemoglobin 36.9 pg (28.0-34.0); Mean Corpuscular Volume 118.5 fL (80-94); Mean Platelet Volume 9.2 fL (7.4-10.4); Monocytes # 0.4 10^3/uL (0.2-0.9); Monocytes % 10.4 %; Neutrophils % 60.1 %; Nucleated Red Blood Cells # 0.1 /100WBC; Nucleated Red Blood Cells % 2.5 %; Platelet Count 122 10^3/cmm (130-400); Red Blood Count 2.71 10^6/uL (4.1-5.3); Red Cell Distribution Width 20.3 % (12.1-15.1); White Blood Count 3.7 10^3/uL (4.0-10.0)
[2021-04-11 18:46] LABS: Alanine Aminotransferase 44 U/L (0-41); Alkaline Phosphatase 74 IU/L (40-130); Anion Gap 15.4 (5-19); Aspartate Amino Transferase 32 U/L (0-40); Blood Urea Nitrogen 19 mg/dL (8-23); Calcium 9.1 mg/dL (8.5-10.5); Carbon Dioxide 25 mmol/L (22-29); Chloride 105 mmol/L (98-107); Globulin 1.6 g/dL (1.3-4.6); Glucose 63 mg/dL (65-115); Lactate Dehydrogenase 244 U/L (135-225); Osmolality Calculated 294 mOsm/kg (285-295); Potassium 3.4 mmol/L (3.5-5.1); Sodium 142 mmol/L (136-145); Total Bilirubin 0.5 mg/dL (0.15-1.2); Total Protein 5.6 g/dL (6.6-8.7)
[2021-04-11 19:30] LABS: Magnesium 2.2 mg/dL (1.7-2.3); Uric Acid 4.4 mg/dL (3.4-7.0)
== END 2021-04-11 17:38 | disposition home or self-care (01) ==
LOC: LAB 17:42
PROVIDERS: PCP Family Medicine Adult Medicine; Visit Provider Internal Medicine Medical Oncology
DX: C92.00 Acute myeloblastic leukemia, not having achieved remission (principal)
CPT/HCPCS: 80053; 83615; 83735; 84100; 84550; 85025

== ENCOUNTER 2021-05-02 06:00 | Outpatient (RCR) | payer MEDICARE, BC, SELFPAY | END 2021-05-31 23:59 | disposition home or self-care (01) | LOC: SPT 06:00 | PROVIDERS: PCP Family Medicine Adult Medicine; Referring Provider Family Medicine Adult Medicine; Visit Provider Family Medicine Adult Medicine | DX: M19.90 Unspecified osteoarthritis, unspecified site (principal) | CPT/HCPCS: 97113 ==

== ENCOUNTER → 2021-05-10 15:11 | Outpatient (BNVA) | payer MEDICARE, BC, SELFPAY | PROVIDERS: PCP Family Medicine Adult Medicine; Visit Provider Internal Medicine Critical Care Medicine | DX: B44.1 Other pulmonary aspergillosis (principal); Z20.822 Contact with and (suspected) exposure to COVID-19 | CPT/HCPCS: 87635 ==

== ENCOUNTER 2021-05-17 16:00 | Outpatient (CLI) | payer MEDICARE, BC, SELFPAY ==
--- NOTE | 2021-05-17 13:43 | PFTS_ITS ---
Date of Study:05/17/21 Date of Dictation: 05/24/2021 MECHANICS: Postbronchodilator forced vital capacity (FVC) is normal. Postbronchodilator forced expiratory volume in one second (FEV1) is normal. FEV1/FVC is normal. No significant response to bronchodilators. FLOW VOLUME LOOP: Normal. . LUNG VOLUMES: Not measured. DIFFUSING CAPACITY FOR CARBON MONOXIDE: Not measured . INTERPRETATION: The spirometry is normal. There is no significant response to bronchodilators. MTDD
== END 2021-05-17 16:01 | disposition home or self-care (01) ==
LOC: RT 16:00
PROVIDERS: PCP Family Medicine Adult Medicine; Visit Provider Internal Medicine Critical Care Medicine
DX: J21.9 Acute bronchiolitis, unspecified (principal)
CPT/HCPCS: 94060; J7611

== ENCOUNTER → 2021-05-28 10:21 | Outpatient (BNVA) | payer MEDICARE, BC, SELFPAY | PROVIDERS: PCP Family Medicine Adult Medicine; Visit Provider Nurse Practitioner | DX: H00.023 Hordeolum internum right eye, unspecified eyelid (principal); R42 Dizziness and giddiness | CPT/HCPCS: 85025 ==

== ENCOUNTER 2021-06-01 06:00 | Outpatient (RCR) | payer MEDICARE, BC, SELFPAY | END 2021-07-01 23:59 | disposition home or self-care (01) | LOC: SPT 06:00 | PROVIDERS: PCP Family Medicine Adult Medicine; Visit Provider Family Medicine Adult Medicine | DX: M19.90 Unspecified osteoarthritis, unspecified site (principal); I73.9 Peripheral vascular disease, unspecified | CPT/HCPCS: 97113 ==

== ENCOUNTER 2021-07-16 09:54 | Outpatient (CLI) | payer MEDICARE, BC, SELFPAY ==
--- NOTE | 2021-07-16 10:00 | CT_ITS ---
WS: [id number] Comparison 10/06/2020 Exam: CT chest wo con [id number] Date/Time of Exam: 07/16/2021 10:19 AM Reason For Exam: Bronchiolitis DLP: 877.[address] scans at [facility] use at least one of these dose optimization techniques: automated e xposure control; mA and/or kV adjustment per patient size (includes targeted exams where dose is matc hed to clinical indication); or iterative reconstruction. Compared to the last exam dated 10/06/2020. The lungs are fully expanded. There is fibrous scarring in the left upper lobe. No focal infiltrates are seen. No suspicious pulmonary mass. The lungs are hyperinflated which might be related to obstruc tive lung disease. The airway is patent. The thoracic aorta is normal in caliber. No significant medi astinal or hilar lymphadenopathy. No pleural or pericardial effusion. Regional bony structures are in tact. The chest wall is unremarkable in appearance. CT/CT chest wo con [id number] IMPRESSION: 1. Fibrous scarring in the left upper lobe. Pulmonary hyperinflation which may be seen with COPD. 2. No suspicious pulmonary mass. No significant lymphadenopathy in the chest. S table exam.
== END 2021-07-16 09:55 | disposition home or self-care (01) ==
PROVIDERS: PCP Family Medicine Adult Medicine; Visit Provider Internal Medicine Critical Care Medicine
DX: J21.9 Acute bronchiolitis, unspecified (principal)
CPT/HCPCS: 71250

== ENCOUNTER → 2021-11-13 15:13 | Outpatient (BNVA) | payer MEDICARE, BC, SELFPAY | PROVIDERS: PCP Family Medicine Adult Medicine; Visit Provider Internal Medicine Critical Care Medicine | DX: J21.9 Acute bronchiolitis, unspecified (principal); C92.00 Acute myeloblastic leukemia, not having achieved remission; D45 Polycythemia vera; K21.9 Gastro-esophageal reflux disease without esophagitis; I73.89 Other specified peripheral vascular diseases | CPT/HCPCS: 99214 ==

== ENCOUNTER → 2021-12-13 09:33 | Outpatient (BNVA) | payer MEDICARE, BC, SELFPAY | PROVIDERS: PCP Family Medicine Adult Medicine; Visit Provider Family Medicine Adult Medicine | DX: I73.9 Peripheral vascular disease, unspecified (principal); N40.0 Benign prostatic hyperplasia without lower urinary tract symptoms; C92.00 Acute myeloblastic leukemia, not having achieved remission; Z13.6 Encounter for screening for cardiovascular disorders; D45 Polycythemia vera | CPT/HCPCS: 80053; 80061; 83036; 84443; 85025; G0103 ==

== ENCOUNTER → 2022-01-30 08:59 | Outpatient (BNVA) | payer MEDICARE, BC, SELFPAY | PROVIDERS: PCP Family Medicine Adult Medicine; Referring Provider Family Medicine Adult Medicine; Visit Provider Surgery | DX: K59.09 Other constipation (principal); D49.0 Neoplasm of unspecified behavior of digestive system | CPT/HCPCS: 99203 ==

== ENCOUNTER 2022-02-27 08:41 | Day surgery (SDC) | payer MEDICARE, BC, SELFPAY ==
[2022-02-25 14:40] VITALS: BMI 26.1
[2022-02-27] MEDS: sodium chloride 0.9% 1,000 ML 30 ML IV (09:04)
[2022-02-27 09:05] VITALS: BP 121/80; PULSE 82; RESP 18; TEMP 35.9; O2SAT 95
--- NOTE | 2022-02-27 09:58 | P.ANESASSM_ITS ---
Pre-Anesthetic Assessment Height/Weight: Height 1.78 m Weight 82.554 kg Temp Pulse Resp BP Pulse Ox 96.7 F L 82 18 121/80 95 02/27/22 09:05 02/27/22 09:05 02/27/22 09:05 02/27/22 09:05 02/27/22 09:05 Preop Diagnosis: Need for screening colonoscopy Operation Date: 02/27/22 10:30 Proposed Procedures p Colonoscopy 00730,Z12.11(Not Applicable) - Olivier Mares DO Familial anesthetic complications: None Was Beta Marvin taken within 24 hours: N/A Was Clonidine taken within 24 hours: N/A Last intake: Intake Last Liquid Date 02/26/22 Last Liquid Time 21:00 Last Solid Date 02/26/22 Last Solid Time 07:30 Social No alcohol and No tobacco Exam alert, oriented x 3, clear to auscultation bilaterally and regular rate & rhythm Airway Mallampati: Class II Dentition: other (bridge) Pulmonary aspergillosis CV/HEM Deep Vein Thrombosis GI Gastroesophageal Reflux Disease Metabolic Diabetes Mellitus Musc/skel AML, GVHD Neuropsych Seizure Anesthetic Plan ASA status: 4 Anesthesia: MAC Risk of > 500 ml blood loss (7ml/kg in children): No Medications/Allergies Home Medications Medication Instructions Recorded Confirmed Last Taken Type finasteride 5 mg tablet 5 mg PO BEDTIME 01/30/20 02/27/22 02/26/22 History multivitamin (Multiple Vitamins) 1 tab PO DAILY 01/30/20 02/27/22 02/25/22 History ascorbate calcium (vitamin C) 500 500 mg PO DAILY 03/19/21 02/27/22 Unknown History mg tablet aspirin 81 mg tablet,delayed 81 mg PO DAILY #90 tab 03/28/21 02/27/22 02/25/22 Rx release (Adult Aspirin Regimen) cholecalciferol (vitamin D3) 50 50 mcg PO DAILY 04/04/21 02/27/22 02/26/22 History mcg (2,000 unit) capsule cyanocobalamin (vitamin B-12) 1,000 mcg PO DAILY 05/10/21 02/27/22 02/26/22 History 1,000 mcg capsule docusate sodium 50 mg capsule 50 mg PO DAILY PRN 01/30/22 02/27/22 02/26/22 History (Stool Softener) flaxseed oil 5 ml MISCELLANEOUS ONCE ml 01/30/22 02/27/22 02/26/22 History fluconazole 50 mg tablet 50 mg PO DAILY tab 01/30/22 02/27/22 02/26/22 History levetiracetam 750 mg tablet 750 mg PO BID 01/30/22 02/27/22 02/27/22 History (Keppra) psyllium husk 0.4 gram capsule 0.4 g PO DAILY 01/30/22 02/27/22 02/25/22 History (Metamucil) simvastatin 20 mg tablet 20 mg PO DAILY 01/30/22 02/27/22 02/26/22 History valacyclovir 500 mg tablet 500 mg PO DAILY 01/30/22 02/27/22 02/26/22 History Allergies Allergy/AdvReac Type Severity Reaction Status Date / Time Nitroimidazoles Allergy Mild ALGY-Hives Verified 02/27/22 08:59 vancomycin Allergy Mild ALGY-Hives Verified 02/27/22 08:59 hydrocodone Allergy ADR-Nausea Verified 02/27/22 08:59 meperidine [From Demerol] Allergy ADR/ALGY-Pa Verified 02/27/22 08:59 leness Current Medications Generic Name Dose Route Start Last Admin Trade Name Freq PRN Reason Stop Dose Admin Sodium Chloride 1,000 mls @ 30 mls/hr 02/27/22 09:00 02/27/22 09:04 Sodium Chloride 0.9% IV 02/28/22 08:59 30 mls/hr .Q24H BRIGETTE Administration PFSH Anesthesia Medical History (Updated 01/30/22 @ 13:01 by Fredi Mills MD) Actinic keratosis due to exposure to sunlight 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, 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 Atherosclerosis of [place] arteries of extremities with intermittent claudication, right leg BPH (benign prostatic hyperplasia) Chest pain Chronic constipation 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 Dyslipidemia (high LDL; low HDL) Fracture of ribs, two, closed GERD (gastroesophageal reflux disease) Polycythemia vera Prediabetes 12/13/2021 hemoglobin A1c 5.8 PVD (peripheral vascular disease) with claudication Seizure disorder Submucosal neoplasm of stomach Submucosal nodules Surgical History (Updated 01/30/22 @ 12:55 by Fredi Mills MD) Hx of bone marrow transplant S/P appendectomy S/P left rotator cuff repair Social History Smoking and tobacco status: never smoked Second hand smoke exposure: No Smoking risk assessment/counseling performed?: No Alcohol intake: never Counseling given: No Counseling given: No Lives independently: Yes Household members: spouse Marital status: Current occupational status: retired History of recent travel: No Current gender identity: Male Data Anesthesia Cardiac Studies: No Data to Display
--- NOTE | 2022-02-27 10:24 | W.PM.OPSUD ---
Surgery/Procedure H&P Update DATE OF PROCEDURE: February 27, 2022 DATE H&P PERFORMED: 01/30/22 PREOP DIAGNOSIS: Need for screening colonoscopy PLANNED PROCEDURE: Operation Date: 02/27/22 10:30 Proposed Procedures p Colonoscopy 99834,Z12.11(Not Applicable) - Olivier Mares DO
[2022-02-27 11:37] VITALS: BP 110/73; PULSE 60; RESP 16; TEMP 36.2; O2SAT 94
[2022-02-27 12:00] VITALS: BP 114/78; PULSE 67; RESP 18; O2SAT 95
--- NOTE | 2022-02-27 13:49 | ANE.PACU2 ---
Inpatient post-anesthesia follow up: Airway intact: Yes Vital signs: Temperature 97.2 F Pulse Rate 67 Respiratory Rate 18 Blood Pressure 114/78 Pulse Oximetry 95 Oxygen Delivery Me thod Room Air Oxygen Flow Rate Fraction of Inspir ed Oxygen Hydration adequate: Yes Nausea and vomiting: No Pain level: 1 Mental status: Baseline
== END 2022-02-27 12:08 | disposition home or self-care (01) ==
PROVIDERS: PCP Family Medicine Adult Medicine; Visit Provider Surgery
PROC: 0DJD8ZZ Inspection of Lower Intestinal Tract, Via Natural or Artificial Opening Endoscopic (ICD-10-PCS; CPT 45378; principal; 2022-02-27 10:30)
DX: Z12.11 Encounter for screening for malignant neoplasm of colon (principal); C92.30 Myeloid sarcoma, not having achieved remission; Z86.718 Personal history of other venous thrombosis and embolism; E11.9 Type 2 diabetes mellitus without complications; K21.9 Gastro-esophageal reflux disease without esophagitis; Z79.82 Long term (current) use of aspirin
CPT/HCPCS: 45385; 88305; 88342; 88365; J2370; J2704; J7030

== ENCOUNTER → 2022-03-13 10:17 | Outpatient (BNVA) | payer MEDICARE, BC, SELFPAY | PROVIDERS: PCP Family Medicine Adult Medicine; Visit Provider Surgery | DX: C92.00 Acute myeloblastic leukemia, not having achieved remission (principal) | CPT/HCPCS: 99212 ==

== ENCOUNTER → 2022-03-20 13:54 | Outpatient (BNVA) | payer MEDICARE, BC, SELFPAY | PROVIDERS: PCP Family Medicine Adult Medicine; Visit Provider Family Medicine Adult Medicine | DX: C92.00 Acute myeloblastic leukemia, not having achieved remission (principal); I70.211 Atherosclerosis of native arteries of extremities with intermittent claudication, right leg; R73.03 Prediabetes; E78.5 Hyperlipidemia, unspecified | CPT/HCPCS: 80053; 80061; 84443 ==